=== PATIENT | female | born 1940 | race Caucasian/White ===

== ENCOUNTER → 2016-06-29 14:45 | Outpatient (CLI) | payer MEDICARE ==
[2013-11-18 19:30] VITALS: BMI 28.2
[~2016-06-29 14:45] MED LIST: BAYER CHEWABLE81 MG PO; CEFTIN500 MG PO; FLUTICASONE PRO16 GM NS; METOPROLOL TAR100 M1 PO; MOBIC7.5 MG PO; NEURONTIN 300300 MG PO; PEPCID40 MG PO; PROTONIX20 MG PO
== END | disposition home or self-care (01) ==
LOC: D.MAMMO 09:00
DX: C50.911 Malignant neoplasm of unspecified site of right female breast (principal)

== ENCOUNTER → 2017-07-01 14:13 | Outpatient (CLI) | payer MEDICARE ==
[2013-11-18 19:30] VITALS: BMI 28.2
== END | disposition home or self-care (01) ==
LOC: D.MAMMO 11:00
DX: C50.911 Malignant neoplasm of unspecified site of right female breast (principal); C64.9 Malignant neoplasm of unspecified kidney, except renal pelvis

== ENCOUNTER 2017-10-18 16:59 | Emergency (ER) | payer MEDICARE ==
[2013-11-18 19:30] VITALS: BMI 28.2
[2017-10-18 17:37] LABS: BASOPHILS 0.7 % (0-2); EOSINOPHILS 7.3 % (0-7); HEMATOCRIT 44.6 % (36.0-48.0); IMMATURE GRANULOCYTES 0.3 % (0-5); LYMPHOCYTES 29.5 % (15-50); MCHC 33.6 g/dL (31.0-37.0); MCV 92.1 fL (80.0-100.0); MONOCYTES 8.8 % (2-11); NEUTROPHILS 53.4 % (40-80); PLATELET COUNT 184 10x3/uL (130-400); RBC 4.84 10x6/uL (4.00-5.40); RDW 14.2 % (11.5-14.5); WBC 6.7 10x3/uL (4.8-10.8)
[2017-10-18 17:51] LABS: ALBUMIN 3.6 g/dL (3.4-5.0); ANION GAP 13.2 mmol/L (8-16); BILIRUBIN - TOTAL 0.4 mg/dL (0.2-1.3); CALCIUM 10.8 mg/dL (8.5-10.1); CARBON DIOXIDE 24.7 mmol/L (21.0-32.0); POTASSIUM - SERUM 3.9 mmol/L (3.5-5.1); PROTEIN - SERUM 7.8 g/dL (6.4-8.2)
[2017-10-18 18:04] LABS: INR 1.05 (0.85-1.17); PROTIME 13.3 SECONDS (11.6-15.0)
[2017-10-18 18:39] LABS: CREATINE KINASE 105 UL (21-215); PRO BNP 522 pg/mL (0-450); TROPONIN-I < 0.017 ng/mL (0.000-0.060)
[2017-10-18 19:14] LABS: APPEARANCE SLT CLOUDY (CLEAR); BILIRUBIN NEGATIVE (NEGATIVE); COLOR YELLOW (YELLOW); GLUCOSE NEGATIVE (NEGATIVE); KETONE NEGATIVE (NEGATIVE); NITRITE NEGATIVE (NEGATIVE); PROTEIN NEGATIVE (NEGATIVE); UROBILINOGEN NORMAL (NORMAL)
[2017-10-18 19:16] LABS: BACTERIA MODERATE /hpf (NONE SEEN); CALCIUM OXALATE CRYSTALS 0-5 /hpf (NONE SEEN); EPITHELIAL CELLS 0-5 /hpf (0-5); RED CELLS - URINE 0-5 /hpf (0-5)
== END 2017-10-18 19:46 | disposition home or self-care (01) ==
LOC: D.ER 16:59
PROVIDERS: Emergency Medicine; Nurse Practitioner Family
DX: R00.2 Palpitations (principal); I48.91 Unspecified atrial fibrillation; N39.0 Urinary tract infection, site not specified; Z85.3 Personal history of malignant neoplasm of breast; E11.9 Type 2 diabetes mellitus without complications

== ENCOUNTER → 2018-04-21 08:52 | Outpatient (CLI) | payer MEDICARE ==
[2013-11-18 19:30] VITALS: BMI 28.2
== END | disposition home or self-care (01) ==
LOC: D.CT 08:52
PROVIDERS: Internal Medicine Cardiovascular Disease
DX: I65.23 Occlusion and stenosis of bilateral carotid arteries (principal)

== ENCOUNTER → 2018-07-02 18:16 | Outpatient (CLI) | payer MEDICARE ==
[2013-11-18 19:30] VITALS: BMI 28.2
== END | disposition home or self-care (01) ==
LOC: D.MAMMO 10:45
DX: Z12.31 Encounter for screening mammogram for malignant neoplasm of breast (principal)

== ENCOUNTER 2019-02-04 11:34 | Inpatient (IN) | payer MEDICARE ==
[~2019-02-04] VITALS: Ht 162.6 cm; Wt 80.5 kg
[2019-02-04 12:39] VITALS: BP 127/72
[2019-02-04 12:48] LABS: BASOPHILS 0.1 % (0-2); EOSINOPHILS 0 % (0-7); HEMATOCRIT 44.2 % (36.0-48.0); HEMOGLOBIN 15.3 g/dL (12-16); IMMATURE GRANULOCYTES 0.3 % (0-5); LYMPHOCYTES 14.5 % (15-50); MCH 31.2 pg (26.0-34.0); MCHC 34.6 g/dL (31.0-37.0); MEAN PLATELET VOLUME 10.3 fL (7.4-10.4); NEUTROPHILS 75.1 % (40-80); PLATELET COUNT 193 10x3/uL (130-400); RBC 4.91 10x6/uL (4.00-5.40); RDW 14.3 % (11.5-14.5); WBC 7.4 10x3/uL (4.8-10.8)
[2019-02-04 13:01] VITALS: BP 123/71
[2019-02-04 13:09] LABS: INR 1.1 (0.85-1.17); PROTIME 13.7 SECONDS (11.6-15.0)
[2019-02-04 13:38] LABS: ALBUMIN 3.3 g/dL (3.4-5.0); ALKALINE PHOSPHATASE 75 U/L (46-116); ALT (SGPT) 24 U/L (10-68); BILIRUBIN - TOTAL 0.47 mg/dL (0.2-1.3); CALC OSMOLALITY 279 mosm/kg (275-300); CALCIUM 9.2 mg/dL (8.5-10.1); CARBON DIOXIDE 23.6 mmol/L (21.0-32.0); CHLORIDE - SERUM 103 mmol/L (98-107); GLUCOSE 116 mg/dL (74-106); POTASSIUM - SERUM 3.9 mmol/L (3.5-5.1); PROTEIN - SERUM 7.8 g/dL (6.4-8.2); SODIUM 139 mmol/L (136-145); UREA NITROGEN 14 mg/dL (7-18); eGFR NON AFRICAN AMERICAN 57 mL/min (90-120)
[2019-02-04 13:48] LABS: CKMB 0.7 U/L (0.0-3.6); CREATINE KINASE 67 UL (21-215)
[2019-02-04 13:49] LABS: TROPONIN-I < 0.017 ng/mL (0.000-0.060)
[2019-02-04 14:01] VITALS: BP 120/68
--- NOTE | 2019-02-04 14:41 | NUR ---
PT GIVEN BLANKET AND WATER REQUESTED. LIGHTS DIMMED FOR COMFORT. FRIEND AT THE BEDSIDE. CALL LIGHT IN REACH. PT DENIES ANY FUTHER NEEDS, WILL CONTINUE TO MONITOR.
[2019-02-04 15:00] VITALS: BP 109/70
[2019-02-04 16:20] VITALS: BP 123/83
--- NOTE | 2019-02-04 16:20 | NUR ---
PT LYING IN BED, RESPIRATIONS EVEN AND UNLABORED. NO SIGNS OF DISTRESS. FAMILY PRESENT AT BEDSIDE. CALL LIGHT IN REACH.
--- NOTE | 2019-02-04 16:34 | NUR ---
FAX RECEIVED FROM [facility] AT APPROX. 1600 WITH RECORD OF PT'S ECHO THAT WAS RECENTLY DONE AT OUTSIDE FACILITY. GIVEN TO TREATING PROVIDER IN THE ED. THIS NURSE INSTRUCTED NOT TO DISCHARGE PT PREVIOUSLY STATED.
--- NOTE | 2019-02-04 18:41 | NUR ---
ADMITTED FROM ER AT THIS TIME. SHE WAS ABLE TO AMBULATE WITH MINIMAL ASSIST FROM STRETCHER TO THE BED. SHE OFFERS NO C/O DIZZINESS. O2 AT 2L/M PER N/C RESP EVEN WITHOUT LABOR. SHE IS CURRENTLY EATING HER SUPPER. FAMILY AT BEDSIDE. SALINE LOCK INTACT IN LEFT HAND. ARC AIR OPERATOR AWARE OF NEED FOR TELEMETRY. CL IN REACH. BED IN LOWEST POSITION AND LOCKED
[2019-02-04 20:00] VITALS: BP 116/76
--- NOTE | 2019-02-04 20:02 | NUR ---
PT RESTING IN BED ALERT AND ORIENTED X4 WITH 2L OF O2-96%. PT HAS SCD'S ON AT THIS TIME. PT RUNNING 98 SINUS RYTHEM AT THIS TIME. PT CONVERTED OUT OF A-FIBB AT 1957. PT GRANDDAUGHTER AT BEDSIDE. PT DENIES ANY PAIN OR NEEDS AT THIS TIME. BED LOW CALL LIGHT WITHIN REACH. WILL CONTINUE TO MONITOR.
[2019-02-05] VITALS: BP 102/63
--- NOTE | 2019-02-05 00:14 | NUR ---
PT RESTING COMFORTABLY IN BED WITH EYES CLOSED. RR EVEN AND UNLABORED. VITALS STABLE. PT RUNNING 68 SINUS RYTHEM ON TELEMETRY. BED LOW CALL LIGHT WITHIN REACH. WILL CONTINUE TO MONITOR.
--- NOTE | 2019-02-05 00:26 | NUR ---
ALBINA ROSE ASSISTED PT TO BATHROOM. WILL CONTINUE TO MONITOR.
[2019-02-05 03:00] VITALS: BP 116/76; Ht 162.6 cm; Wt 80.5 kg
[2019-02-05 04:30] VITALS: BP 109/68
[2019-02-05 05:41] LABS: BASOPHILS 0.5 % (0-2); EOSINOPHILS 0.5 % (0-7); HEMATOCRIT 40.6 % (36.0-48.0); HEMOGLOBIN 13.8 g/dL (12-16); IMMATURE GRANULOCYTES 0.2 % (0-5); LYMPHOCYTES 29.1 % (15-50); MCH 30.5 pg (26.0-34.0); MCV 89.6 fL (80.0-100.0); MEAN PLATELET VOLUME 10.9 fL (7.4-10.4); MONOCYTES 13.3 % (2-11); NEUTROPHILS 56.4 % (40-80); PLATELET COUNT 183 10x3/uL (130-400); RBC 4.53 10x6/uL (4.00-5.40); RDW 14.2 % (11.5-14.5)
[2019-02-05 05:45] LABS: ANION GAP 12.2 mmol/L (8-16); CALCIUM 8.9 mg/dL (8.5-10.1); CARBON DIOXIDE 26.4 mmol/L (21.0-32.0); POTASSIUM - SERUM 3.6 mmol/L (3.5-5.1)
[2019-02-05 05:47] LABS: WBC 4.2 10x3/uL (4.8-10.8)
--- NOTE | 2019-02-05 06:15 | NUR ---
PT RUNNING 67 AFIBB ON TELEMETRY. WILL CONTINUE TO MONITOR.
--- NOTE | 2019-02-05 07:05 | NUR ---
REPORT RECEIVED. SHE IS ALERT ABLE TO VOICE NEEDS. STATES I FEEL FINE. O2 IS ON AT 2 L/M PER N/C RESP EVEN WITHOUT LABOR SALINE LOCK INTACT. DENIES ANY CURRENT DIZZINESS, PALPITATIONS, OR SOB. CAREPLAN REVIEW DONE WITH SAFETY PRECAUTIONS IN PLACE. BED IN LOWEST POSITION AND LOCKED CL IN REACH
[2019-02-05 08:00] VITALS: BP 100/68
--- NOTE | 2019-02-05 09:20 | NUR ---
SHE CONVERTED TO SR WITH [facility] PAC AT THIS TIME. SHE ALSO WAS IN A-FLUTTER AT 0752 THIS AM. SHE HAS BEEN BACK AND FORTH BETWEEN A-FIB AND SR THIS AM.
--- NOTE | 2019-02-05 09:35 | NUR ---
NEW ORDER FROM DR EVANS AFTER CALLING AND GIVING HIM UPDATE DUE TO SHE HAS BEEN IN A-FIB SINCE 617 THIS AM. IT IS CONTROLLED IN 80'S BUT SHE IS SYMPTOMATIC WHEN SHE GETS UP TO GO TO THE BATHROOM SHE GETS SHORT OF BREATH. SHE IS ALSO CLAMMY ON AND OFF AND JUST FEELS ODD. CURRENT VITALS AND CONDITION WERE REPORTED TO HIM. NEW ORDER GIVEN AND HER AND FAMILY ARE AWARE
--- NOTE | 2019-02-05 09:43 | NUR ---
BLOOD PRESSURE 108/68 HR IS 68. CARDIZEM 10MG GIVEN IVP AT THIS TIME.
--- NOTE | 2019-02-05 09:45 | NUR ---
HR IS CURRENTLY 63 SR, SHE STATES SHE FEELS BETTER AND CAN TELL. BLOOD PRESSURE IS 100/60. O2 SAT IS 95% ON 2 LITERS O2 . UPDATE ON CURRENT CONDITION CALLED TO DR EVANS WHO ORDERED CARDIZEM 60MG PO BID WITH FIRST DOSE TODAY AT NOON.
[2019-02-05 12:45] VITALS: BP 107/64
--- NOTE | 2019-02-05 14:00 | NUR ---
SHE HAS BEEN IN SR TO SB SINCE 945 THIS AM. SHE IS ON ROOM AIR WITH O2 SAT 89-90%. SHE GOT UP AND AMBULATED AND O2 SAT STAYED BETWEEIN 93-95%. SHE FEELS BETTER. NO SHORTNESS OF BREATH.
[2019-02-05 16:58] VITALS: BP 108/69
[2019-02-05] MEDS ORDERED: XARELTO15 MG PO (17:09)
[2019-02-05] MEDS ORDERED: CARDIZEM60 MG PO (17:10)
--- NOTE | 2019-02-05 17:52 | NUR ---
PER PATIENT REQUEST, [facility]S OF [facility]ED[facility] CALLED TO LEONARD AT [facility]. COPY OF SCRIPTS PLACED IN CHART.
--- NOTE | 2019-02-05 18:30 | NUR ---
DISCHARGE INSTRUCIONS EXPLAINED IN DETAIL. SALINE LOCK REMOVED WITH BLEEDING CONTROLLED. TELEMETRY RETURNED TO CREATIVE TECHNOLOGIST. SHE CONTINUES TO HAVE NO C/O SHE WAS ABLE TO DRESS SELF WITH MINIMAL ASSIST AND NO SHORTNESS OF BREATH.
--- NOTE | 2019-02-06 08:03 | MORECARE ---
CASE MANAGEMENT DISCHARGE SUMMARY PATIENT: KIT AKHTAR SWETA UNIT: [id number] ADM DATE: 02/04/19 AGE: 78 : 40 SEX: F ROOM/BED: D. AUTHOR: ELLIS CASTILLO PHYSICIAN: REFERRING PHYSICIAN: OLAYINKA EVANS M.D. DATE OF SERVICE: 02/06/19 Discharge Plan Patient Name: KIT AKHTAR Facility: [facility]:[place] : 1940 Planned Disposition: Home Anticipated Discharge Date: 02/05/19 Discharge Date: 02/05/2019 Expected LOS: 1 Initial Reviewer: [email or web address] Initial Review Date: 02/06/2019 Generated: 02/06/19 9:03 am Patient Name: KIT AKHTAR Page [phone] at 0803 All edits/amendments must be made on the electronic document DICTATION DATE: 02/06/19 08 MANAGER OF CORPORATE COMMUNICATIONS: DM 02/06/19 08 RPT#: [id number] DC DATE:02/05/19 STATUS: DIS IN [facility] [address] [place] [address] END OF REPORT
== END 2019-02-05 18:30 | disposition home or self-care (01) | DRG 310 ==
LOC: D.ER 11:34 → D.M2 17:20
PROVIDERS: Family Medicine; ADMIT Internal Medicine Cardiovascular Disease; ATTEND Internal Medicine Cardiovascular Disease
DX: I48.0 Paroxysmal atrial fibrillation (principal); I10 Essential (primary) hypertension; E11.9 Type 2 diabetes mellitus without complications

== ENCOUNTER → 2019-03-06 08:09 | Outpatient (CLI) | payer MEDICARE ==
[2019-02-05 03:00] VITALS: BMI 30.4
[~2019-03-06 08:09] MED LIST changes: +CARDIZEM60 MG PO; +XARELTO15 MG PO
== END | disposition home or self-care (01) ==
LOC: D.RT 08:09
PROVIDERS: ATTEND Internal Medicine Pulmonary Disease
DX: R06.00 Dyspnea, unspecified (principal)

== ENCOUNTER → 2019-04-13 13:39 | Outpatient (CLI) | payer MEDICARE ==
[2019-02-05 03:00] VITALS: BMI 30.4
== END | disposition home or self-care (01) ==
LOC: D.RAD 13:39
PROVIDERS: ATTEND Internal Medicine Pulmonary Disease
DX: J90 Pleural effusion, not elsewhere classified (principal)

== ENCOUNTER → 2019-04-27 12:17 | Outpatient (CLI) | payer MEDICARE ==
[2019-02-05 03:00] VITALS: BMI 30.4
== END | disposition home or self-care (01) ==
LOC: D.CT 12:17
PROVIDERS: ATTEND Internal Medicine Pulmonary Disease
DX: R93.89 Abnormal findings on diagnostic imaging of other specified body structures (principal)

== ENCOUNTER → 2019-05-21 08:33 | Outpatient (CLI) | payer MEDICARE ==
[2019-02-05 03:00] VITALS: BMI 30.4
[2019-05-21 09:23] LABS: CREATININE - SERUM 0.9 mg/dL (0.6-1.3)
== END | disposition home or self-care (01) ==
LOC: D.CT 08:33
PROVIDERS: ATTEND Internal Medicine Cardiovascular Disease
DX: I71.2 Thoracic aortic aneurysm, without rupture (principal); I71.4 Abdominal aortic aneurysm, without rupture

== ENCOUNTER → 2019-11-26 08:34 | Outpatient (CLI) | payer MEDICARE ==
[2019-02-05 03:00] VITALS: BMI 30.4
== END | disposition home or self-care (01) ==
LOC: D.CT 08:34
PROVIDERS: ATTEND Internal Medicine Cardiovascular Disease
DX: I71.2 Thoracic aortic aneurysm, without rupture (principal)

== ENCOUNTER 2020-01-12 11:49 | Day surgery (SDC) | payer MEDICARE ==
[~2020-01-12] VITALS: Ht 162.6 cm; Wt 85.5 kg
--- NOTE | ~2020-01-12 | HEMODYNAMI ---
PATIENT:KIT AKHTAR MEDICAL RECORD: [id number] : 40 LOCATION:D.CAT ADMISSION DATE: 01/12/20 Generatedon:01/12/202014:47 Patient name: KIT AKHTAR Patient #: [id number] SSN: : 1940 Date of study: 01/12/2020 Page: Of Hemodynamic Procedure Report Patient Data Patient Demographics Procedure consent was obtained First Name: KIT Gender: Female Last Name: GIOVANA : 1940 [facility] Initial: SWETA Age: 79 year(s) Patient #: [id number] Race: Unknown Additional ID: [id number] Contact details Address: [address] [place] [address] State: [place] City: [facility] Zip code: [address] Past Medical History Allergies Allergen Reaction Date Comments Reported Other 01/12/2020 buprophion, allergy ciprofloxacin,citalopram, dayquil,dextromethorphan, levofloxacin, phenylephrine, pseudoephedrine. Admission Admission Data Admission Date: 01/12/2020 Admission Time: 11:49 Admit Source: Other Lab Results Lab Result Date: 01/12/2020 Lab Result Time: 13:23 CBC Name Units Result Min Max Hematocrit % 43.1 --(*---)-- 42 54 Hemoglobin g/dl 14.1 --(*---)-- 13.5 17.5 Procedure Procedure Types Cath Procedure Diagnostic Procedure PPM/ICD PPM Dual Implant Sedation Charges Moderate Sedation up to 30 minutes Procedure Description Procedure Date Procedure Date: 01/12/2020 Procedure Start Time: 14:20 Procedure Staff Name Function Micha Silva MD Performing Physician Remy Galvez MD Assisting physician Jonathan Crawford RT Monitor Toshia Feng RT Scrub Felix Dey RN Nurse Indication Atrial fibrillation Procedure Data Cath Procedure Fluoroscopy Diagnostic fluoroscopy Total fluoroscopy Time: 1.1 time: 1.1 min min Diagnostic fluoroscopy Total fluoroscopy dose: dose: 21.95 mGy 21.95 mGy Estimated blood loss: 5 ml Procedure Complications No complications Procedure Medications Medication Administration Route Dosage Oxygen etCO2 Nasal cannula 2 l/min Lidocaine 1% added to field 20 Ancef (1Gm/50ml NS) I.V.P.B 1 g Ancef Irrigation Topical 1 g (1gm/500ml NS) 0.9% NaCl I.V. 50 ml/hr Zofran I.V. 4 mg Versed I.V. 1 mg Fentanyl I.V. 50 mcg Versed I.V. 1 mg Fentanyl I.V. 50 mcg Hemodynamics Rest Heart Rate: 62 (bpm) Snapshots Pre Cath Intra NCS Post Cath Vital Signs Time Heart Resp SPO2 etCO2 NIBP (mmHg) Rhythm Pain Sedation Rate (ipm) (%) (mmHg) Status Level (bpm) 13:51:56 70 27 94 0 168/95(110) NSR (Missing) 10(A) 14:03:04 67 11 93 152/86(121) NSR (Missing) 10(A) 14:07:20 70 22 94 143/78(105) NSR (Missing) 10(A) 14:11:34 69 18 93 153/91(110) NSR (Missing) 10(A) 14:15:56 64 16 92 149/78(105) NSR (Missing) 10(A) 14:20:16 62 15 93 148/80(114) NSR (Missing) 10(A) 14:24:34 101 6 92 152/83(120) NSR (Missing) 10(A) 14:28:52 64 20 93 155/91(122) NSR (Missing) 10(A) 14:33:11 68 21 93 149/87(109) NSR (Missing) 10(A) 14:37:29 64 12 93 165/86(132) NSR (Missing) 10(A) 14:42:27 63 16 94 Measuring NSR (Missing) 10(A) 14:42:48 68 16 93 158/88(138) NSR (Missing) 10(A) Medications Time Medication Route Dose Verified Delivered Reason Notes Effectiv eness by by 14:05:24 Oxygen etCO2 2 Micha [place] used for Nasal l/min St Carlo Dey RN procedure cannula 14:06:27 Lidocaine added 20ml Micha Alberto for local 1% to vial St Carlo Galvez MD anesthetic field X2 14:06:42 Ancef I.V.P.B 1 g Micha Buffie used for (1Gm/50ml Ricardo Dey inclusion paraeducator NS) 14:06:49 Ancef Topical 1 g Micha Buffie used for Irrigation Ricardo Dey inclusion paraeducator (1gm/500ml MD NS) 14:07:03 0.9% NaCl I.V. 50 Micha Buffie used for ml/hr Ricardo Dey inclusion paraeducator 14:10:40 Zofran I.V. 4 mg Micha Buffie Per Ricardo Dey RN physician 14:15:21 Versed I.V. 1 mg Micha Buffie for Ricardo Dey RN sedation 14:15:27 Fentanyl I.V. 50 Micha Buffie for mcg Ricardo Dey RN sedation 14:21:53 Versed I.V. 1 mg Micha Buffie for Ricardo Dey RN sedation 14:21:57 Fentanyl I.V. 50 Micha Buffie for mcg Ricardo Dey RN sedation MD Procedure Log Time Note 12:25:10 Informed consent obtained and on chart 12:26:08 Indication : Atrial fibrillation 12:26:16 Time tracking: Regular hours (M-F 7:00 - 5:00) 12:26:28 Procedure Status PPM/ Gen Change/ Lead Revision/ Temp. 13:24:09 Jonathan VALENTIN(R) sent for patient. Start room use. 13:24:10 Time tracking: Regular hours (M-F 7:00 - 5:00) 13:24:13 Plan of Care:Hemodynamics will remain stable., Cardiac rhythm will remain stable., Comfort level will be maintained., Respiratory function will remain adequate., Patient/ family verbilizes understanding of procedure., Procedure tolerated without complication., Recovers from procedure without complications.. 13:24:24 H&P Date Dictated: 01/04/2020 Within 30 days and on chart., H&P Addendum completed by physician on day of procedure. (MUST COMPLETE FOR ALL OUTPATIENTS). 13:40:16 Patient received from Pre/Post Procedure Room to CCL 3 Alert and oriented. Tansferred to table in Supine position. 13:40:17 Warm blankets applied, and mando hugger turned on for patient comfort. 13:40:18 Correct patient and procedure confirmed by team. 13:40:18 ECG and BP/O2 sat monitors applied to patient. 13:40:19 Pre-procedure instructions explained to patient. 13:40:20 Pre-op teaching completed and patient verbalized understanding. 13:40:21 Family in waiting room. 13:40:22 Patient NPO since Midnight. 13:50:17 Patient allergic to Other allergybuprophion, ciprofloxacin,citalopram, dayquil,dextromethorphan, levofloxacin, phenylephrine, pseudoephedrine. 13:50:45 Vital chart was started 13:50:47 Baseline sample Acquired. 13:51:00 Rhythm: atrial fibrillation 13:51:02 Full Disclosure recording started 13:51:06 Is the patient allergic to Iodine/contrast media? No. 13:51:09 Patient diabetic? No. 13:52:11 Previous problem with sedation/anesthesia? Yes nausea 13:52:17 Snore? Yes 13:52:18 Sleep apnea? Yes 13:52:19 Deviated septum? No 13:52:21 Opens mouth fully? Yes 13:52:22 Sticks out tongue? Yes 13:52:24 Airway obstruction? No ? 13:52:27 Dentures? No ? 13:53:56 Patient pain scale 0/10 ?. 13:54:00 IV patent on arrival in left forearm with 0.9% NaCl at [facility]. 13:57:57 Lab Result : Hemoglobin 14.1 g/dl 13:57:57 Lab Result : Hematocrit 43.1 % 13:58:14 Admit Source: Other 13:58:21 Lab results completed and on chart. 13:58:26 Left chest area was prepped with chlora-prep and draped in sterile fashion 13:58:27 Alarms reviewed by R. N. 13:58:28 Sharps counted by scrub and verified by R.N. 13:58:33 Use device set ITALIA PPM 13:58:35 2-0 Ticron Multipack ([id number]) opened to sterile field. 13:58:35 3-0 Vicryl Single Pack [id number] opened to sterile field. 13:58:35 5-0 Monocryl PS2 [id number] opened to sterile field. 13:58:36 Cautery Tip Confidential Secretary opened to sterile field. 13:58:36 Cautery Pushbutton Pencil opened to sterile field. 13:58:37 Mepilex Dressing ([id number]) opened to sterile field. 13:59:[address] Generator [id number] opened to sterile field. 13:59:18 Medtronic 4074-52 PPM Lead opened to sterile field. 13:59:18 Medtronic 4574-45 PPM Lead opened to sterile field. 14:05:24 Oxygen 2 l/min etCO2 Nasal cannula was administered by Felix Dey RN; used for procedure; Verbal order read back and verified. 14:06:27 Lidocaine 1% 20ml vial X2 added to field was administered by Remy Galvez MD; for local anesthetic; Verbal order read back and verified. 14:06:42 Ancef (1Gm/50ml NS) 1 g I.V.P.B was administered by Felix Dey RN; used for procedure; Verbal order read back and verified. 14:06:49 Ancef Irrigation (1gm/500ml NS) 1 g Topical was administered by Felix Dey RN; used for procedure; Verbal order read back and verified. 14:07:03 0.9% NaCl 50 ml/hr I.V. was administered by Felix Dey RN; used for procedure; Verbal order read back and verified. 14:08:52 Medtronic applications sales representative Kj Muñiz present for procedure. 14:09:01 Pre sharps counted by scrub and verified by RN: Sutures: 7; Sponges: 5; Stick needles: 2; Skin needles: 2; Blade: 1; Cautery: 1 14:09:04 Grounding pad site Left thigh. 14:09:07 Grounding pad site free from injury. 14:10:40 Zofran 4 mg I.V. was administered by Felix Dey RN; Per physician; Verbal order read back and verified. 14:12:36 Physician arrived 14:12:37 --------ALL STOP TIME OUT------ 14:12:38 Final Timeout: patient, procedure, and site verified with staff and physician. All members of the team are in agreement. 14:12:49 Left chest site verified by team. 14:13:16 Fire Safety Assessment: A--An alcohol-based skin anteseptic being used preoperatively., C--Open oxygen or nitrous oxide is being used., D--An ESU, laser, or fiber-optic light is being used. 14:13:20 Physical assessment completed. ASA score P 2 - A patient with mild systemic disease as per Micha Silva MD. 14:13:33 1) 90+ Normal kidney functon but urine findings or structural abnormalities or genetic trait point to kidney disease. 14:13:40 Sedation plan: IV Moderate Sedation Medication:Versed, Fentanyl 14:15:21 Versed 1 mg I.V. was administered by Felix Dey RN; for sedation; Verbal order read back and verified. 14:15:27 Fentanyl 50 mcg I.V. was administered by Felix Dey RN; for sedation; Verbal order read back and verified. 14:20:17 Lidocaine 2% was administered to left subclavicular area by Remy Galvez MD . 14:21:53 Versed 1 mg I.V. was administered by Felix Dey RN; for sedation; Verbal order read back and verified. 14:21:57 Fentanyl 50 mcg I.V. was administered by Felix Dey RN; for sedation; Verbal order read back and verified. 14:22:34 Incision made to left subclavicular area. 14:22:36 Generator pocket made/opened. 14:26:45 Left subclavian vein accessed with 7Fr Peel Away Sheath. 14:27:00 Left subclavian vein accessed with 7Fr Peel Away Sheath. 14:27:39 Ventricular lead inserted and advanced. 14:27:43 Atrial lead inserted and advanced. 14:30:08 Ventricular lead positioned. 14:31:12 Atrial lead positioned. 14:32:21 Ventricular lead tested. 14:32:23 Atrial lead tested. 14:32:26 Peel-a-way sheath was split and removed. 14:32:28 Peel-a-way sheath was split and removed. 14:34:02 Atrial lead attachment was completed with 2-0 ticron. 14:34:05 Ventricular lead attachment was completed with 2-0 ticron. 14:34:09 PPM Dual was attached to lead(s) and inserted into pocket. 14:34:12 Device pocket was irrigated with Ancef. 14:34:20 Generator was sutured in place with 2-0 ticron. 14:35:40 Subcutaneous closure was completed with 3-0 vicryl. 14:36:48 Parameters-- Generator: Mode: DDDR. Lower Rate: 60bpm. Upper Rate: 130bpm. 14:37:20 Parameters--Atrial P/R Wave: 2.1mV. Current: N/AmA; Threshold: 0.25V; Impedence: 456OHMS. 14:37:46 Parameters--Ventricular P/R Wave: 0.4mV. Current: N/AmA; Threshold: 0.375V; Impedence: 1140OHMS. 14:37:53 Skin closure was completed with 5-0 monocryl. 14:42:34 Lt Chest incision was dressed with Mepilex dressing. 14:42:37 Procedure ended.(Physican Out) 14:42:48 Fluoroscopy time 01.10 minutes. 14:42:56 Fluoroscopy dose: 21.95 mGy 14:42:56 Flurop Dose total: 21.95 14:43:04 Dose Area Product 275.38 mGy/cm. 14:43:21 Sharps counted by scrub and verified by R.N. 14:43:29 Post sharps counted by scrub and verified by RN: Sutures: 7; Sponges: 5; Stick needles: 2; Skin needles: 2; Blade: 1; Cautery: 1 14:43:32 Insertion/operative site no bleeding no hematoma. 14:43:37 Post-op/insertion site Left Subclavian vein dressed using a Mepilex dressing. 14:43:45 Post left subclavian vein:stable, soft, clean and dry 14:43:49 Post-procedure physical assessment completed. ASA score P 2 - A patient with mild systemic disease as per Micha Silva MD. 14:43:54 Post procedure rhythm: sinus rhythm , paced 14:44:00 Estimated blood loss: 5 ml 14:44:03 Post procedure instruction explained to patient.Patient verbalizes understanding. 14:44:08 Patient needs reinforcement of post procedure teaching. 14:44:39 Procedure type changed to Cath procedure, Diagnostic procedure, PPM/ICD, PPM Dual Implant, Sedation Charges, Moderate Sedation up to 30 minutes 14:44:53 Procedure and supply charges have been captured, reviewed, submitted and are correct. 14:44:56 Procedure Complication : No complications 14:44:59 Vital chart was stopped 14:45:08 Operative report dictated upon procedure completion. 14:45:09 Report given to Pre/Post Procedure Room. 14:45:12 Patient transfered to Pre/Post Procedure Room with Stretcher. 14:45:19 End room use (Document Last) 14:45:52 End room use (Document Last) Device Usage Item Name Manufacture Quantity Catalog Hospital Part Current [facility] l Lot# / Serial# Number Charge Number Stock Stock Code 2-0 Ticron Ethicon 4 [id number] 02899 [id number] 5 Multipack ([id number]) 3-0 Vicryl Ethicon 1 [id number] 173057 [id number] 5 Single Pack [id number] 5-0 Monocryl Ethicon 1 [id number] 928992 586266 376088 5 PS2 Y495G Cautery Tip Microtek 1 [id number] 754593 667218 109907 5 Confidential Secretary [employer] Cautery Microtek 1 [id number] 14572 [id number] 5 Pushbutton [employer] Pencil Mepilex Cardinal 1 [id number] 077451 301771 447668 5 Dressing Health ([id number]) Medtronic Medtronic 1 [id number] 908106 5562640 746908 5 SN: [id number] CARSON XT DR 2021-04-30 Generator [id number] Medtronic Medtronic 1 4074-52 357759 835903 541008 5 [id number] 4074-52 PPM EXP:2020-02-13 Lead Medtronic Medtronic 1 4574-45 403271 871827 240443 5 [id number] 4574-45 PPM 2020-04-23 Lead Signature Audit [place] Stage Time Signature Unsigned Intra-Procedure 01/12/2020 Felix Dey 2:45:52 PM RN; Jonathan Crawford RT(R); Micha Silva MD [facility] [address] [place] [address]
--- NOTE | ~2020-01-12 | OP ---
PATIENT NAME: KIT AKHTAR MEDICAL RECORD: [id number] :40 LOCATION:D.CAT ADMISSION DATE: SURGEON: REMY ECHAVARRIA MD DATE OF OPERATION: 01/12/2020 PREOPERATIVE DIAGNOSES: 1. Sick sinus syndrome. 2. Atrial fibrillation. POSTOPERATIVE DIAGNOSES: 1. Sick sinus syndrome. 2. Atrial fibrillation. PROCEDURE: 1. Left subclavian vein dual lead pacemaker placement. 2. Fluoroscopic interpretation. SURGEON: Remy Echavarria MD CO-SURGEON: Micha Kingston MD REPORT OF PROCEDURE: The patient's left chest was prepped and draped in sterile fashion. A 25 mL of 1% lidocaine with epinephrine was infused into the surrounding tissues. A skin incision was made on the left superior lateral chest and a subcutaneous pouch was made over the pectoral fascia. The needles were used to cannulate the left subclavian vein and guidewires were advanced times 2. Fluoro was used to note that the wires were in good position in the venous system. Dilator trocar devices were placed over the wires and the wires and dilators were removed. The leads were advanced through the trocars until they rested in the superior vena cava. At this point, Dr. Kingston positioned the leads appropriately in the atrium and ventricle. Once the leads were noted to be functioning appropriately, then they were sutured into place with 2-0 TiCron. The leads were affixed to the pacemaker, which was placed into the subcutaneous pouch and sutured to the pectoral fascia with a single interrupted 2-0 TiCron. We irrigated out the wound bed with antibiotic solution. The subcutaneous tissues were reapproximated with interrupted 3-0 Vicryl and the skin was closed with running subcutaneous 5-0 Monocryl. COMPLICATIONS: None. CONDITION: Stable. ANESTHESIA: Local MAC. BLOOD LOSS: Minimal. TRANSINT:[id number] Voice Confirmation ID: [id number] DOCUMENT ID: [id number] OPERATIVE REPORT [id number] KIT AKHTAR CHRISTIAN MD CC: [id number] DICTATION DATE: 01/12/20 1448 CLAIM SERVICE REPRESENTATIVE: 01/12/20 [address] [facility] 01/12/20 [place] [address]
[2020-01-12] MEDS ORDERED: CALCIUM 600 +1 EAC3 PO (12:22)
[2020-01-12] MEDS ORDERED: CO Q-10100 MG PO (12:23)
[2020-01-12] MEDS ORDERED: FOLIC ACID0.8 MG PO (12:23)
[2020-01-12 12:43] VITALS: BP 128/87; Ht 162.6 cm; Wt 85.5 kg
[2020-01-12 13:42] LABS: HEMATOCRIT 43.1 % (36.0-48.0); HEMOGLOBIN 14.1 g/dL (12-16); MCH 31.5 pg (26.0-34.0); MCHC 32.7 g/dL (31.0-37.0); MCV 96.4 fL (80.0-100.0); MEAN PLATELET VOLUME 10.6 fL (7.4-10.4); RBC 4.47 10x6/uL (4.00-5.40); RDW 14.3 % (11.5-14.5); WBC 6.6 10x3/uL (4.8-10.8)
[2020-01-12 13:49] LABS: APTT 42.2 SECONDS (22.8-39.4); INR 1.11 (0.85-1.17); PROTIME 14.2 SECONDS (11.6-15.0)
[2020-01-12 13:58] LABS: ANION GAP 13.1 mmol/L (8-16); CALCIUM 9.8 mg/dL (8.5-10.1); CARBON DIOXIDE 25.9 mmol/L (21.0-32.0); CREATININE - SERUM 0.9 mg/dL (0.6-1.3)
--- NOTE | 2020-01-12 15:00 | NUR ---
PT RECEIVED VIA STRETCHER FROM STEEL PAN FORM PLACING SUPERVISOR POST PACEMAKER. PT AWAKE AND ALERT, DENIES PAIN OR DISCOMFORT AT THIS TIME. L UPPER CHEST W MEDIPLEX DRESSING IN PLACE, NO BLEEDING NOTED. IV PATENT INFUSING VIA ORDERS. PT PLACED ON CARDIAC MONITORS, HR PACED AT 66, BP 159/87, RR 15, SAT 94 ON ROOM AIR. L ARM STATIONARY IN SLING. CALL LIGHT IN REACH, GRANDDAUGHTER AT BS. SIPS OF SPRITE GIVEN
--- NOTE | 2020-01-12 15:17 | NUR ---
JOSEFINA AT BS.
--- NOTE | 2020-01-12 15:30 | NUR ---
PT RESTING W/O COMPLAINTS. DRESSING REMAINS CDI NO S/S BLEEDING NOTED. VSS. CALL LIGHT IN REACH
--- NOTE | 2020-01-12 15:54 | NUR ---
DISCHARGE INSTRUCTIONS REVIEWED W PT AND GRANDDAUGHTER, BOTH VERBALIZED UNDERSTANDING.
--- NOTE | 2020-01-12 16:05 | NUR ---
IV REMOVED W CATH INTACT, MONITORS REMOVED. MEDIPLEX DRESSING REMAINS CDI NO S/S HEMATOAM OR BLEEDING NOTED. PT UP TO DRESS FOR DISCHARGE W SLING IN PLACE.
--- NOTE | 2020-01-12 16:20 | NUR ---
PT DISCHARGED VIA WC TO GRANDDAUGHTER WAITING IN PRIVATE VEHICLE. GRANDDAUGHTER HAD ALL PT BELONGINGS AND DISCHARGE PAPERWORK,
--- NOTE | 2020-01-14 14:25 | OP ---
PATIENT NAME: JOSE DE JESUS MCALLISTER MEDICAL RECORD: [id number] :40 LOCATION:D.CAT ADMISSION DATE: SURGEON: YANET HOLT MD DATE OF OPERATION: 01/12/2020 PROCEDURE: Lead portion of permanent pacemaker. SURGEON: Remy Galvez MD DIAGNOSIS: Sick sinus syndrome with pauses. DESCRIPTION OF PROCEDURE: After left subclavian was cannulated via modified Seldinger technique via Dr. Galvez, first under fluoroscopic guidance, the RV lead was placed in the RV apex without difficulty. After adequate thresholds and R waves were obtained, again under fluoroscopic guidance, I placed the right atrial lead in the right atrial appendage without difficulty. After adequate P waves and thresholds are obtained, the leads were then attached to appropriate poles of the generator and pocket was closed via Dr. Galvez. IMPRESSION: Successful lead portion of permanent pacemaker placement of Jose De Jesus Mcallister. ESTIMATED BLOOD LOSS: Minimal. DISPOSITION: To the floor, stable. TRANSINT:[id number] Voice Confirmation ID: [id number] DOCUMENT ID: [id number] YANET HOLT MD at 1425 CC: [id number] DICTATION DATE: 01/12/20 1503 ENGINEERING ADMINISTRATOR: 01/12/20 [address] [facility] 01/12/20 [place] [id number] [facility] [place] [address]
== END 2020-01-12 16:20 | disposition home or self-care (01) ==
LOC: D.CATH 11:49 → EDSTATUS 13:30 → D.CATH 16:20
PROVIDERS: ATTEND Internal Medicine Interventional Cardiology
DX: I49.5 Sick sinus syndrome (principal); I48.91 Unspecified atrial fibrillation; E78.5 Hyperlipidemia, unspecified; I10 Essential (primary) hypertension

== ENCOUNTER 2020-09-07 09:45 | Outpatient (CLI) | payer MEDICARE ==
[2020-01-12 12:43] VITALS: BMI 32.3
[~2020-09-07 09:45] MED LIST changes: +CALCIUM 600 +1 EAC3 PO; +CO Q-10100 MG PO; +FOLIC ACID0.8 MG PO
== END 2020-09-07 23:59 | disposition home or self-care (01) ==
LOC: D.MAMMO 09:45
PROVIDERS: ATTEND Family Medicine
DX: Z12.31 Encounter for screening mammogram for malignant neoplasm of breast (principal)

== ENCOUNTER 2020-09-15 11:00 | Outpatient (CLI) | payer MEDICARE ==
[2020-01-12 12:43] VITALS: BMI 32.3
== END 2020-09-15 23:59 | disposition home or self-care (01) ==
LOC: D.MAMMO 11:00
PROVIDERS: ATTEND Family Medicine
DX: R92.8 Other abnormal and inconclusive findings on diagnostic imaging of breast (principal)

== ENCOUNTER → 2020-09-15 11:02 | Outpatient (CLI) | payer MEDICARE ==
[2020-01-12 12:43] VITALS: BMI 32.3
== END | disposition home or self-care (01) ==
LOC: D.CT 11:02
PROVIDERS: ATTEND Internal Medicine Cardiovascular Disease
DX: I71.4 Abdominal aortic aneurysm, without rupture (principal); I71.2 Thoracic aortic aneurysm, without rupture

== ENCOUNTER 2020-11-04 08:03 | Inpatient (IN) | payer MEDICARE ==
[2020-11-03 14:32] LABS: BASOPHILS 1.2 % (0-2); EOSINOPHILS 5.2 % (0-7); HEMATOCRIT 46.1 % (36.0-48.0); HEMOGLOBIN 14.9 g/dL (12-16); LYMPHOCYTES 27.3 % (15-50); MCH 30.8 pg (26.0-34.0); MCHC 32.3 g/dL (31.0-37.0); MCV 95.6 fL (80.0-100.0); MONOCYTES 7.7 % (2-11); NEUTROPHILS 58.6 % (40-80); PLATELET COUNT 218 10x3/uL (130-400); RBC 4.82 10x6/uL (4.00-5.40); RDW 14.9 % (11.5-14.5); WBC 6.3 10x3/uL (4.8-10.8)
[2020-11-03 14:45] LABS: ANION GAP 14.4 mmol/L (8-16); BILIRUBIN - TOTAL 0.39 mg/dL (0.2-1.3); CALCIUM 10.5 mg/dL (8.5-10.1); CARBON DIOXIDE 26.7 mmol/L (21.0-32.0); CREATININE - SERUM 1.1 mg/dL (0.6-1.3); POTASSIUM - SERUM 4.1 mmol/L (3.5-5.1); PROTEIN - SERUM 7.8 g/dL (6.4-8.2)
[2020-11-03 14:47] LABS: BILIRUBIN NEGATIVE (NEGATIVE); KETONE NEGATIVE (NEGATIVE); NITRITE NEGATIVE (NEGATIVE); UROBILINOGEN NORMAL mg/dL (< 2)
[2020-11-03 14:48] LABS: SQUAMOUS EPITHELIAL 0-5 HPF (0-4)
[2020-11-03 14:49] LABS: APTT 31.2 SECONDS (22.8-39.4); BACTERIA FEW HPF (NONE SEEN); INR 1.28 (0.85-1.17); PROTIME 14.8 SECONDS (11.6-15.0)
[~2020-11-04] VITALS: Ht 160 cm; Wt 86.1 kg
[~2020-11-04 08:03] MED LIST changes: +ELIQUIS2.5 MG PO; +MULTAQ PO; +ZYLOPRIM300 MG PO
[2020-11-04 12:20] LABS: BILIRUBIN NEGATIVE (NEGATIVE); KETONE NEGATIVE (NEGATIVE); NITRITE NEGATIVE (NEGATIVE); UROBILINOGEN NORMAL mg/dL (< 2)
[2020-11-08] VITALS (21 sets, daily range): BP systolic 109–140; BP diastolic 61–85; BMI 32.3; BMI 35.2
--- NOTE | 2020-11-08 12:35 | NUR ---
RECEIVED PATIENT FROM OR, PATIENT LETHARGIC BUT ORIENTED AND ANSWERS QUESTIONS APPROPRIATELY. PATIENT WITH RIGHT IJ CVL WITH PLASMOLYTE INFUSING AT 50 ML/HR AND NTG AT 16.6 MCG/MIN (5ML/HR). LEFT WRIST ART LINE AND CVP LEVELED AND ZEROED. BILATERAL GROINS SOFT, NO HEMATOMA OR BLEEDING NOTED, DRESSINGS, C/D/I. BBS - CLEAR, DIMINISHED IN THE BASES, SPO2 - 100% ON SIMPLE MASK AT 12 LPM O2, CM - NSR RATE 95, CVP 3, RR 26. VIZCAINO CATH IN PLACE WITH CLEAR YELLOW UOP NOTED. HEAD TO TOE ASSESSMENT COMPLETED.
[2020-11-08 12:39] LABS: HEMATOCRIT 33.3 % (36.0-48.0); HEMOGLOBIN 10.9 g/dL (12-16); MCH 31.2 pg (26.0-34.0); MCHC 32.6 g/dL (31.0-37.0); MCV 95.7 fL (80.0-100.0); MEAN PLATELET VOLUME 8.5 fL (7.4-10.4); RBC 3.48 10x6/uL (4.00-5.40); RDW 14.5 % (11.5-14.5); WBC 14.5 10x3/uL (4.8-10.8)
[2020-11-08 12:48] LABS: ANION GAP 12.6 mmol/L (8-16); CALCIUM 8.6 mg/dL (8.5-10.1); CARBON DIOXIDE 25.9 mmol/L (21.0-32.0); CREATININE - SERUM 1.2 mg/dL (0.6-1.3); POTASSIUM - SERUM 4.5 mmol/L (3.5-5.1)
--- NOTE | 2020-11-08 13:22 | NUR ---
PATIENTS GRANDDAUGHTER (BIANCA) AT ROOM UPDATED AND QUESTIONS ANSWERED.
--- NOTE | 2020-11-08 13:25 | NUR ---
XRAY AT ROOM FOR CX4R.
--- NOTE | 2020-11-08 13:51 | NUR ---
DR. CAO AT ROOM UDPATED AND EXAMINES PATIENT.
--- NOTE | 2020-11-08 14:01 | NUR ---
DR. VINSON OFFICE NOTIFIED OF CONSULT, DR. SCHULTZ IS ON THIS WEEK.
--- NOTE | 2020-11-08 14:18 | NUR ---
FLAQUITO SEVILLA NOTIFIED OF CONSULT.
--- NOTE | 2020-11-08 14:40 | NUR ---
DR. BARKER OFFICE CONTACTED AND NOTIFIED OF CONSULT.
--- NOTE | 2020-11-08 15:15 | NUR ---
REASSESSMENT COMPLETED. VSS. GRANDDAUGHTER AT BEDSIDE.
--- NOTE | 2020-11-08 16:22 | NUR ---
DR. GIMENEZ CALLED BACK REGARDING CONSULT AND UPDATED ON PATIENT CONDITION.
--- NOTE | 2020-11-08 17:19 | NUR ---
DR. EPSITIA AT ROOM UPDATED AND EXAMINES PATIENT. ORDERS [facility] FOR [address] DALI.
[2020-11-08 18:30] LABS: ANION GAP 15.6 mmol/L (8-16); CALCIUM 8.2 mg/dL (8.5-10.1); CARBON DIOXIDE 23.2 mmol/L (21.0-32.0); POTASSIUM - SERUM 4.8 mmol/L (3.5-5.1)
[2020-11-08 18:31] LABS: CREATININE - SERUM 1.7 mg/dL (0.6-1.3)
[2020-11-09] VITALS (24 sets, daily range): BP systolic 113–1144; BP diastolic 62–91; Ht 160 cm; Wt 86.1 kg
[2020-11-09 05:00] LABS: HEMATOCRIT 29.8 % (36.0-48.0); HEMOGLOBIN 9.8 g/dL (12-16); MCH 31.4 pg (26.0-34.0); MCHC 32.7 g/dL (31.0-37.0); MCV 95.9 fL (80.0-100.0); MEAN PLATELET VOLUME 8.9 fL (7.4-10.4); RBC 3.11 10x6/uL (4.00-5.40); RDW 14.6 % (11.5-14.5); WBC 11.4 10x3/uL (4.8-10.8)
[2020-11-09 05:20] LABS: ALBUMIN 2.6 g/dL (3.4-5.0); ANION GAP 12.6 mmol/L (8-16); BILIRUBIN - TOTAL 0.37 mg/dL (0.2-1.3); CALCIUM 7.9 mg/dL (8.5-10.1); CREATININE - SERUM 1.8 mg/dL (0.6-1.3); MAGNESIUM - SERUM 2.1 mg/dL (1.8-2.4); POTASSIUM - SERUM 4.6 mmol/L (3.5-5.1); PROTEIN - SERUM 5.3 g/dL (6.4-8.2)
--- NOTE | 2020-11-09 07:45 | NUR ---
ASSISTED UP TO CHAIR AT THIS TIME. TOLERATED WELL. GRANDAUGHTER AT BEDSIDE. MEAL TRAY DELIVERED AND SET UP. NO FURTHER NEEDS AT THIS TIME.
--- NOTE | 2020-11-09 08:31 | NUR ---
EDEL TO LEFT HAND DC'D PER ORDER. PT TOLERATED WELL. SITTING UP IN CHAIR. DR. CAO AT BEDSIDE. OKAY TO INCREASE DIET TO REGULAR TOLERATED.
--- NOTE | 2020-11-09 08:45 | OP ---
PATIENT NAME: KIT AKHTAR MEDICAL RECORD: [id number] :40 LOCATION:D.CVI D.CV08 ADMISSION DATE:11/08/20 SURGEON: RONEY CAO MD DATE OF OPERATION: 11/08/2020 SURGEON: Ronye Cao MD. PROCEDURES PERFORMED: 1. Insertion of bifurcated aortic endograft for repair of abdominal aortic aneurysm. 2. Percutaneous exposure of bilateral common femoral arteries. 3. 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 Go Patel). 4. Aortogram times 2. 5. Iliac angiogram. 6. Graft angioplasty procedure. ANESTHESIA: General endotracheal anesthesia. ESTIMATED BLOOD LOSS: 400 mL with 200 mL Cell Saver. COMPLICATIONS: None. CONDITION: Stable. DISPOSITION: CV ICU. OPERATIVE FINDINGS: 1. Some difficulty cannulating the inferior left renal artery due to the angulated origin, but eventually coiled with no apparent flow. 2. Tortuous iliac arteries as expected, good exclusion of the abdominal aortic aneurysm after deploying the endograft and limbs. 3. Slight narrowing of the right femoral at the closure site on the closure iliac angiogram, but strong Doppler pulses bilaterally. 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 DESCRIPTION OF PROCEDURE: The patient was brought to the operative suite. General anesthesia was obtained. The patient was prepped and draped on both sides. The femoral artery was cannulated with micropuncture technique and ultrasound guidance. Using a wire, initially a 6-Nauruan sheath was placed. Then, 2 ProGlides were pre-deployed with the more lateral one on the right, having the foot pad not completely retracted. Later this one was failed and replaced at the conclusion of the case. Heparin was given. Sheaths were placed on both sides, the 8-Nauruan on the left and on the right due to bleeding, upsized to 10-Nauruan. Dr. Patel used the pigtail catheter to perform an aortogram. The inferior renal artery was selected and eventually coiled. A 16 sheath exchanged on the right over the stiff wire and then a 26-mm aortic body delivery system installed. The contralateral limb was cannulated by using the integrated wire site and a snare and on the left, 18 x 140 limb was placed on the right, the 18 x 120 limb bilaterally. The overlap was dilated with a 12 OPERATIVE REPORT [id number] KIT AKHTAR x 20 balloon. Completion angiogram revealed no endoleak and the pigtail catheter was pulled into the main body. Right limb was closed and completion angiogram revealed a slight narrowing. Left side was then closed using the ProGlides without difficulty. Good Doppler signal. Anesthesia reversed after giving the protamine. TRANSINT:[id number] Voice Confirmation ID: [id number] DOCUMENT ID: [id number] RONEY CAO MD at 0845 CC: OLAYINKA PATEL M.D. and FELIPA SALAMANCA [id number] DICTATION DATE: 11/08/20 1736 ADMITTING COUNSELOR: 11/09/20 0123 ADM IN [place] [id number] [place] [address]
--- NOTE | 2020-11-09 12:30 | NUR ---
ASSISTED BACK TO BED. ZINACEF FINISHED INFUSING. RIJ CVL SALINE LOCKED. VIZCAINO CATHETER DC'D WITH BALLOON INTACT. EMPTIED ABOUT 450ML OF CLEAR YELLOW URINE. PT RESTING COMFORTABLY IN BED. DENIES FURTHER NEEDS AT THIS TIME.
--- NOTE | 2020-11-09 14:54 | NUR ---
PT WANTS CHICKEN NOODLE SOUP, APPLE JUICE AND WATER FOR DINNER. NUTRITION AMBASSADOR NOTIFIED AT EXT. 0834
--- NOTE | 2020-11-09 17:01 | NUR ---
SITTING UP IN BED. MEAL TRAY DELIVERED AND SET UP. DENIES HAVING ANY PAIN AT THIS TIME. WILL CONTINUE TO MONITOR.
[2020-11-10] VITALS (22 sets, daily range): BP systolic 104–132; BP diastolic 47–76
--- NOTE | 2020-11-10 02:08 | NUR ---
PT BECOMING INCREASINGLY ANXIOUS ABOUT HOW TO CARE FOR SELF WHEN DISCHARGED. PT NOTED THAT SHE IS MUCH "WEAKER THAN I EVER THOUGHT I WOULD BE." PT HAS SAID "I JUST DON'T KNOW WHAT TO DO", MULTIPLE TIMES THROUGHOUT THE SHIFT. WHEN ASKED ABOUT SOMEONE TO HELP OUT FOR A FEW DAYS WHILE SHE GETS HER STRENTH BACK, PT STATES THAT THERE IS NO ONE THAT SHE CAN RELY ON. PT. COUNSELED ON POSSIBLE HOME HEALTH OR SHORT TERM REHAB. PT ALSO REASSURED THAT CASE MANAGEMENT AND PT WOULD BOTH BE CONSULTED TO SPEAK WITH HER REGARDING ARRANGEMENTS FOR SAFE DISCHARGE.
[2020-11-10 06:07] LABS: ALBUMIN 2.5 g/dL (3.4-5.0); ANION GAP 10.2 mmol/L (8-16); BILIRUBIN - TOTAL 0.48 mg/dL (0.2-1.3); CALCIUM 8.1 mg/dL (8.5-10.1); CARBON DIOXIDE 28.3 mmol/L (21.0-32.0); CREATININE - SERUM 1.9 mg/dL (0.6-1.3); POTASSIUM - SERUM 4.5 mmol/L (3.5-5.1); PROTEIN - SERUM 5.5 g/dL (6.4-8.2)
[2020-11-10 07:04] LABS: HEMATOCRIT 26.5 % (36.0-48.0); HEMOGLOBIN 8.7 g/dL (12-16); MCH 31.5 pg (26.0-34.0); MCHC 32.9 g/dL (31.0-37.0); MCV 95.7 fL (80.0-100.0); MEAN PLATELET VOLUME 9.6 fL (7.4-10.4); PLATELET COUNT 97 10x3/uL (130-400); RBC 2.77 10x6/uL (4.00-5.40); RDW 14.1 % (11.5-14.5); WBC 11.4 10x3/uL (4.8-10.8)
[2020-11-10 07:23] LABS: PLATELET ESTIMATE NORMAL
--- NOTE | 2020-11-10 07:36 | NUR ---
0600 - PT GIVEN CHG BATH AND COMPLETE LINEN CHANGE. PT THEN ASSISTED TO CHAIR.
--- NOTE | 2020-11-10 07:37 | NUR ---
DR. ESPITIA AT BEDSIDE. REQUESTED BLADDER SCAN BE DONE TO MAKE SURE THAT PT IS NOT RETAINING URINE. PT URINATED 175CC AND SCAN DONE IMMEDIATELY AFTER VOID SHOWS 124CC REMAIN. DR. ESPITIA AWARE OF RESULTS
--- NOTE | 2020-11-10 18:53 | MORECARE ---
CASE MANAGEMENT DISCHARGE SUMMARY PATIENT: KIT AKHTAR UNIT: [id number] ADM DATE: 11/08/20 AGE: 79 : 40 SEX: F ROOM/BED: [facility] AUTHOR: JONATHANDOC PHYSICIAN: REFERRING PHYSICIAN: VALENCIA CAO MD DATE OF SERVICE: 11/10/20 Case Management Discharge Planning Summary DCP REVIEW SUMMARY ANTICIPATED D/C DATE: EXPECTED LOS : CASE STATUS: DCP Initiated INITIAL REVIEW: 11/10/2020 INITIAL REVIEWER: Annmarie Padilla FINAL DISCHARGE DISPOSITION: : FINAL REVIEWER: FINAL REVIEW DATE: DCP Focus Questions & Answers DCP Screen QUESTION: ANSWER High Risk Factors: : None Walking limitation: Patient stated self rated walking limitation present? : Yes Age: : 65 - 79 Prior living environment: : Lives Alone Disability ranking: : Grade 1: No significant disability DCP Evaluation QUESTION: ANSWER Patient's ability to cope with chronic illness : d. No chronic illness Would patient like to participate in any Care Coordination programs (if applicable): : Not applicable Mental health screen: : No mental health history DCP Re-evaluation QUESTION: ANSWER Would patient like to participate in any Care Coordination programs (if applicable): : Not applicable PATIENT: KIT AKHTAR ENCOUNTER: [id number] MEDICAL RECORD#: [id number] ADMISSION DATE: 11/08/2020 DISCHARGE DATE: ATTENDING MD: VALENCIA WALTON : AGE: 79 MARITAL STATUS: W DC PLAN ID: [id number] FACILITY: [facility] PRINTED ON: 11/10/20 18:53 CT All edits/amendments must be made on the electronic document DICTATION DATE: 11/10/201851 FISH ROE TECHNICIAN: NICKI 11/10/201851 RPT#: [id number] DC DATE: STATUS: ADM IN [place] [address] [place] [address] END OF REPORT
--- NOTE | 2020-11-10 19:03 | MORECARE ---
CASE MANAGEMENT DISCHARGE SUMMARY PATIENT: KIT AKHTAR UNIT: [id number] ADM DATE: 11/08/20 AGE: 79 : 40 SEX: F ROOM/BED: [facility] AUTHOR: JONATHANDOC PHYSICIAN: REFERRING PHYSICIAN: VALENCIA CAO MD DATE OF SERVICE: 11/10/20 Case Management Discharge Planning Summary DCP REVIEW SUMMARY ANTICIPATED D/C DATE: EXPECTED LOS : CASE STATUS: DCP Initiated INITIAL REVIEW: 11/10/2020 INITIAL REVIEWER: Annmarie Padilla FINAL DISCHARGE DISPOSITION: : FINAL REVIEWER: FINAL REVIEW DATE: DCP Focus Questions & Answers DCP Screen QUESTION: ANSWER High Risk Factors: : None Walking limitation: Patient stated self rated walking limitation present? : Yes Age: : 65 - 79 Prior living environment: : Lives Alone Disability ranking: : Grade 1: No significant disability DCP Evaluation QUESTION: ANSWER Patient and/or caregiver agree upon recommended discharge plan? : Yes Family / Caregiver's ability to cope with chronic illness: : a. Adequate (ability to meet patient's medical needs, ensures patient attends medical appts.) Patient's current cognitive status: : *Oriented to person, place, situation, time and present Patient's ability to cope with chronic illness : d. No chronic illness Functional screen assessment: : Basic needs can adequately be met by self Family / Caregiver's ability to cope with chronic illness: : a. Adequate (ability to meet patient's medical needs, ensures patient attends medical appts.) Physical Status: : Independent with ADL's Equipment needed for post hospitalization: : None Is there a likelihood that the patient will require additional services to return to the preadmission environment? : No Living Arrangements: : Home Alone with No Support Results of this evaluation have been discussed with: : Patient Patient with capacity for self-care or can be cared for in same environment as prior to hospitalization? : Yes Baseline cognitive status: : *Oriented to person, place, situation, time and present Physical environment modification needed / anticipated for discharge: : No Preadmission facility can/cannot provide post hospital level of care needs: : Can - at same level of care as preadmission Medication Management: : Patient states can afford medications Planned post hospital services available for patient? : N/A Pharmacy name(s): : [facility] on [address] Planned post hospital services covered by insurance plan? : N/A Does Patient have transportation to get home and to follow-up medical appointments when discharged from the hospital? : Yes Comments: : Her friend, Huey Maciel will drive her home upon DC and to her appointments Would patient like to participate in any Care Coordination programs (if applicable): : Not applicable Does the patient have electricity at home? : Yes Does the patient have running water in their house? : Yes Equipment in use: : CPAP Equipment in use: : Cane - Quad Equipment agency name and contact information: : [facility] on [facility] [address] Mental health screen: : No mental health history Psychosocial status: : Independent adult (65+) Abuse/Neglect: : None Resources / Services in place: : None DCP Re-evaluation QUESTION: ANSWER Would patient like to participate in any Care Coordination programs (if applicable): : Not applicable PATIENT: KIT AKHTAR ENCOUNTER: [id number] MEDICAL RECORD#: [id number] ADMISSION DATE: 11/08/2020 DISCHARGE DATE: ATTENDING MD: VALENCIA WALTON : AGE: 79 MARITAL STATUS: W DC PLAN ID: [id number] FACILITY: [facility] PRINTED ON: 11/10/20 19:03 CT All edits/amendments must be made on the electronic document DICTATION DATE: 11/10/201902 FORESTRY BIOLOGY SPECIALIST: NICKI 11/10/201902 RPT#: [id number] DC DATE: STATUS: ADM IN [facility] [address] [place] [address] END OF REPORT
--- NOTE | 2020-11-10 19:13 | MORECARE ---
CASE MANAGEMENT DISCHARGE SUMMARY PATIENT: KIT AKHTAR UNIT: [id number] ADM DATE: 11/08/20 AGE: 79 : 40 SEX: F ROOM/BED: D.08 AUTHOR: JONATHAN,DOC PHYSICIAN: REFERRING PHYSICIAN: VALENCIA CAO MD DATE OF SERVICE: 11/10/20 Case Management Discharge Planning Summary COMMENTS ENTERED DATE: 11/10/20 18:59 CT COMMENT TYPE: Discharge Planning REVIEWER: Annmarie Padilla CM met with patient to discuss discharge planning / needs. CM discussed availability of home health, rehab services, and medical equipment. Patient states she plans to discharge to home where she lives alone. States she does not feel safe to discharge today because she feels weak. States she was independent prior to hospitalization but she is not as strong as she was before. CM encouraged patient and discussed that she was able to ambulate 150` with therapy today and hopefully she will feel stronger tomorrow. Patient agreed. States she has a sister that lives in [place]. But she has her hands full taking care of her that has Alzheimer's. States she has a granddaughter that lives in [place] but she is not available all the time because she works. States her friend, Huey Maciel will transport her home upon discharge. Dr. Wall is her PCP and she uses [facility] pharmacy on [address]. Denies any discharge planning needs at this time. CM will continue to follow and see if patient needs any post acute care upon hospital DC. DCP REVIEW SUMMARY ANTICIPATED D/C DATE: EXPECTED LOS : CASE STATUS: DCP Initiated INITIAL REVIEW: 11/10/2020 INITIAL REVIEWER: Annmarie Padilla FINAL DISCHARGE DISPOSITION: : FINAL REVIEWER: FINAL REVIEW DATE: DCP Focus Questions & Answers DCP Screen QUESTION: ANSWER High Risk Factors: : None Walking limitation: Patient stated self rated walking limitation present? : Yes Age: : 65 - 79 Prior living environment: : Lives Alone Disability ranking: : Grade 1: No significant disability DCP Evaluation QUESTION: ANSWER Patient and/or caregiver agree upon recommended discharge plan? : Yes Family / Caregiver's ability to cope with chronic illness: : a. Adequate (ability to meet patient's medical needs, ensures patient attends medical appts.) Patient's current cognitive status: : *Oriented to person, place, situation, time and present Patient's ability to cope with chronic illness : d. No chronic illness Functional screen assessment: : Basic needs can adequately be met by self Family / Caregiver's ability to cope with chronic illness: : a. Adequate (ability to meet patient's medical needs, ensures patient attends medical appts.) Physical Status: : Independent with ADL's Equipment needed for post hospitalization: : None Is there a likelihood that the patient will require additional services to return to the preadmission environment? : No Living Arrangements: : Home Alone with No Support Results of this evaluation have been discussed with: : Patient Patient with capacity for self-care or can be cared for in same environment as prior to hospitalization? : Yes Baseline cognitive status: : *Oriented to person, place, situation, time and present Physical environment modification needed / anticipated for discharge: : No Preadmission facility can/cannot provide post hospital level of care needs: : Can - at same level of care as preadmission Medication Management: : Patient states can afford medications Planned post hospital services available for patient? : N/A Pharmacy name(s): : [facility] on [address] Planned post hospital services covered by insurance plan? : N/A Does Patient have transportation to get home and to follow-up medical appointments when discharged from the hospital? : Yes Comments: : Her friend, Huey Maciel will drive her home upon DC and to her appointments Would patient like to participate in any Care Coordination programs (if applicable): : Not applicable Does the patient have electricity at home? : Yes Does the patient have running water in their house? : Yes Equipment in use: : CPAP Equipment in use: : Cane - Quad Equipment agency name and contact information: : [facility] [place] on [address] screen: : No mental health history Psychosocial status: : Independent adult (65+) Abuse/Neglect: : None Resources / Services in place: : None DCP Re-evaluation QUESTION: ANSWER Would patient like to participate in any Care Coordination programs (if applicable): : Not applicable PATIENT: KIT AKHTAR ENCOUNTER: [id number] MEDICAL RECORD#: [id number] ADMISSION DATE: 11/08/2020 DISCHARGE DATE: ATTENDING MD: VALENCIA WALTON : AGE: 79 MARITAL STATUS: W DC PLAN ID: [id number] FACILITY: [facility] PRINTED ON: 11/10/20 19:13 CT All edits/amendments must be made on the electronic document DICTATION DATE: 11/10/201912 CARDIAC TECHNICIAN: NICKI 11/10/201912 RPT#: [id number] DC DATE: STATUS: ADM IN [facility] [address] [place] [address] END OF REPORT
[2020-11-11] VITALS (18 sets, daily range): BP systolic 101–128; BP diastolic 56–88
[2020-11-11 05:56] LABS: HEMATOCRIT 26.4 % (36.0-48.0); HEMOGLOBIN 8.8 g/dL (12-16); MCH 32.1 pg (26.0-34.0); MCHC 33.5 g/dL (31.0-37.0); MCV 95.9 fL (80.0-100.0); RBC 2.75 10x6/uL (4.00-5.40); RDW 14.5 % (11.5-14.5); WBC 10.5 10x3/uL (4.8-10.8)
[2020-11-11 06:27] LABS: ALBUMIN 2.6 g/dL (3.4-5.0); ANION GAP 10.4 mmol/L (8-16); BILIRUBIN - TOTAL 0.54 mg/dL (0.2-1.3); CALCIUM 8.6 mg/dL (8.5-10.1); CARBON DIOXIDE 25.8 mmol/L (21.0-32.0); POTASSIUM - SERUM 4.2 mmol/L (3.5-5.1); PROTEIN - SERUM 5.9 g/dL (6.4-8.2)
--- NOTE | 2020-11-11 10:31 | NUR ---
DR. BENSON NOTIFIED OF PATIENT BEING IN CONTROLLED ATRIAL FIB. NEW ORDERS REC'D.
--- NOTE | 2020-11-11 11:28 | NUR ---
REHAB PRESCREEN RECEIVED. AFTER LOOKING IN HER CHART AND COLLABORATING WITH REGINALDO VEGA ON THE ACUTE SIDE, IT IS FELT THAT THE PATIENT IS TOO HIGH FUNCTIONING FOR INPATIENT REHAB, BUT MAY BENEFIT FOR SOME HOME HEALTH FOR THERAPY CARRY OVER AND HOME SAFETY EDUCATION. I HAVE CALLED AND DISCUSSED THIS WITH PORTILLO RUBY RN CM DIRECTOR. THANK YOU FOR THIS REFERRAL. LIANE MENENDEZ RN CLINICAL LIAISON, INPATIENT [facility].
--- NOTE | 2020-11-11 12:13 | NUR ---
Nutrition Follow-up: POD 3 AAA repair. Pt reports poor appetite. Denies N/V. -BM; +flatus. Reports occasional difficulty swallowing but that she know what it is and how to deal with it. Declines nutrition supplements at this time. Diet: Cardiac Carb Consistent Wt: 189# (11/11) Labs noted: Cre 2.0, GFR 25, Glu 99, Alb 2.6 Meds noted: Senokot, Colace -Encourage PO intake and honor food preferences within diet restrictions. -Offer nutrition supplements. -RD will follow up within 3-4 days.
--- NOTE | 2020-11-11 12:17 | NUR ---
BLADDER SCAN DONE AFTER VOIDED. NO RESIDUAL.
--- NOTE | 2020-11-11 13:47 | MORECARE ---
CASE MANAGEMENT DISCHARGE SUMMARY PATIENT: KIT AKHTAR UNIT: [id number] ADM DATE: 11/08/20 AGE: 79 : 40 SEX: F ROOM/BED: [facility] AUTHOR: JONATHAN,DOC PHYSICIAN: REFERRING PHYSICIAN: VALENCIA CAO MD DATE OF SERVICE: 11/11/20 Case Management Discharge Planning Summary COMMENTS ENTERED DATE: 11/11/20 13:41 CT COMMENT TYPE: Discharge Planning REVIEWER: Annmarie Padilla Late entry for 11:30 CM notified by Moraima Ham, [facility] rehab, that patient was too high functioning for rehab. ENTERED DATE: 11/11/20 13:31 CT COMMENT TYPE: Discharge Planning REVIEWER: Annmarie Padilla Late entry for 11:11 CM met with patient to discuss request for rehab. Patient states she still does not feel strong enough to go home alone. CM discussed availability of home health, rehab services, and SNF services. Patient signed BRENT for [facility] IRF. Declined to choose potential SNF or Home Health at this time. Wants to wait until she hears determination for rehab. CM notified Moraima Ham at [facility] IR[facility] about referral. Awaiting determination. ENTERED DATE: 11/10/20 18:59 CT COMMENT TYPE: Discharge Planning REVIEWER: Annmarie Padilla CM met with patient to discuss discharge planning / needs. CM discussed availability of home health, rehab services, and medical equipment. Patient states she plans to discharge to home where she lives alone. States she does not feel safe to discharge today because she feels weak. States she was independent prior to hospitalization but she is not as strong as she was before. CM encouraged patient and discussed that she was able to ambulate 150` with therapy today and hopefully she will feel stronger tomorrow. Patient agreed. States she has a sister that lives in [place]. But she has her hands full taking care of her that has Alzheimer's. States she has a granddaughter that lives in [place] but she is not available all the time because she works. States her friend, Huey Maciel will transport her home upon discharge. Dr. Wall is her PCP and she uses [facility] pharmacy on [address]. Denies any discharge planning needs at this time. CM will continue to follow and see if patient needs any post acute care upon hospital DC. DCP REVIEW SUMMARY ANTICIPATED D/C DATE: EXPECTED LOS : CASE STATUS: DCP Initiated INITIAL REVIEW: 11/10/2020 INITIAL REVIEWER: Annmarie Padilla FINAL DISCHARGE DISPOSITION: : FINAL REVIEWER: FINAL REVIEW DATE: DCP Focus Questions & Answers DCP Screen QUESTION: ANSWER High Risk Factors: : None Walking limitation: Patient stated self rated walking limitation present? : Yes Age: : 65 - 79 Prior living environment: : Lives Alone Disability ranking: : Grade 1: No significant disability DCP Evaluation QUESTION: ANSWER Patient and/or caregiver agree upon recommended discharge plan? : Yes Family / Caregiver's ability to cope with chronic illness: : a. Adequate (ability to meet patient's medical needs, ensures patient attends medical appts.) Patient's current cognitive status: : *Oriented to person, place, situation, time and present Patient's ability to cope with chronic illness : d. No chronic illness Functional screen assessment: : Basic needs can adequately be met by self Family / Caregiver's ability to cope with chronic illness: : a. Adequate (ability to meet patient's medical needs, ensures patient attends medical appts.) Physical Status: : Independent with ADL's Equipment needed for post hospitalization: : None Is there a likelihood that the patient will require additional services to return to the preadmission environment? : No Living Arrangements: : Home Alone with No Support Results of this evaluation have been discussed with: : Patient Patient with capacity for self-care or can be cared for in same environment as prior to hospitalization? : Yes Baseline cognitive status: : *Oriented to person, place, situation, time and present Physical environment modification needed / anticipated for discharge: : No Preadmission facility can/cannot provide post hospital level of care needs: : Can - at same level of care as preadmission Medication Management: : Patient states can afford medications Planned post hospital services available for patient? : N/A Pharmacy name(s): : [facility] [address] Planned post hospital services covered by insurance plan? : N/A Does Patient have transportation to get home and to follow-up medical appointments when discharged from the hospital? : Yes Comments: : Her friend, Huey Maciel will drive her home upon DC and to her appointments Would patient like to participate in any Care Coordination programs (if applicable): : Not applicable Does the patient have electricity at home? : Yes Does the patient have running water in their house? : Yes Equipment in use: : CPAP Equipment in use: : Cane - Quad Equipment agency name and contact information: : [facility] on [facility] [address] Mental health screen: : No mental health history Psychosocial status: : Independent adult (65+) Abuse/Neglect: : None Resources / Services in place: : None DCP Re-evaluation QUESTION: ANSWER Would patient like to participate in any Care Coordination programs (if applicable): : Not applicable PATIENT: KIT AKHTAR ENCOUNTER: [id number] MEDICAL RECORD#: [id number] ADMISSION DATE: 11/08/2020 DISCHARGE DATE: ATTENDING MD: VALENCIA WALTON : AGE: 79 MARITAL STATUS: W DC PLAN ID: [id number] FACILITY: [facility] PRINTED ON: 11/11/20 13:47 CT All edits/amendments must be made on the electronic document DICTATION DATE: 11/11/201346 FINANCIAL SERVICES INTERNSHIP: NICKI 11/11/20 1347 RPT#: [id number] DC DATE: STATUS: ADM IN [facility] [address] [place] [address] END OF REPORT
[2020-11-11] MEDS ORDERED: MULTAQ400 MG PO (14:10)
--- NOTE | 2020-11-11 14:12 | MORECARE ---
CASE MANAGEMENT DISCHARGE SUMMARY PATIENT: KIT AKHTAR UNIT: [id number] ADM DATE: 11/08/20 AGE: 79 : 40 SEX: F ROOM/BED: [facility] AUTHOR: JONATHAN,DOC PHYSICIAN: REFERRING PHYSICIAN: VALENCIA CAO MD DATE OF SERVICE: 11/11/20 Case Management Discharge Planning Summary COMMENTS ENTERED DATE: 11/11/20 13:42 CT COMMENT TYPE: Discharge Planning REVIEWER: Annmarie Padilla 13:10 CM informed patient of denial for rehab. Offered list of SNF and Home Health. Patient states she would like to speak with her granddaughter about this decision. States she is at work right now, but she will text her. CM informed patient that home health is available to admit her tomorrow if she was interested in that services. CM awaiting patient's decision. ENTERED DATE: 11/11/20 13:41 CT COMMENT TYPE: Discharge Planning REVIEWER: Annmarie Padilla Late entry for 11:30 CM notified by Moraima Ham, [facility] rehab, that patient was too high functioning for rehab. ENTERED DATE: 11/11/20 13:31 CT COMMENT TYPE: Discharge Planning REVIEWER: Annmarie Padilla Late entry for 11:11 CM met with patient to discuss request for rehab. Patient states she still does not feel strong enough to go home alone. CM discussed availability of home health, rehab services, and SNF services. Patient signed BRENT for [facility] IRF. Declined to choose potential SNF or Home Health at this time. Wants to wait until she hears determination for rehab. CM notified Moraima Ham at [facility] IR[facility] about referral. Awaiting determination. ENTERED DATE: 11/10/20 18:59 CT COMMENT TYPE: Discharge Planning REVIEWER: Annmarie Padilla CM met with patient to discuss discharge planning / needs. CM discussed availability of home health, rehab services, and medical equipment. Patient states she plans to discharge to home where she lives alone. States she does not feel safe to discharge today because she feels weak. States she was independent prior to hospitalization but she is not as strong as she was before. CM encouraged patient and discussed that she was able to ambulate 150` with therapy today and hopefully she will feel stronger tomorrow. Patient agreed. States she has a sister that lives in [place]. But she has her hands full taking care of her that has Alzheimer's. States she has a granddaughter that lives in [place] but she is not available all the time because she works. States her friend, Huey Maciel will transport her home upon discharge. Dr. Wall is her PCP and she uses [facility] pharmacy on [address]. Denies any discharge planning needs at this time. CM will continue to follow and see if patient needs any post acute care upon hospital DC. DCP REVIEW SUMMARY ANTICIPATED D/C DATE: EXPECTED LOS : CASE STATUS: DCP Initiated INITIAL REVIEW: 11/10/2020 INITIAL REVIEWER: Annmarie Padilla FINAL DISCHARGE DISPOSITION: : FINAL REVIEWER: FINAL REVIEW DATE: DCP Focus Questions & Answers DCP Screen QUESTION: ANSWER High Risk Factors: : None Walking limitation: Patient stated self rated walking limitation present? : Yes Age: : 65 - 79 Prior living environment: : Lives Alone Disability ranking: : Grade 1: No significant disability DCP Evaluation QUESTION: ANSWER Patient and/or caregiver agree upon recommended discharge plan? : Yes Family / Caregiver's ability to cope with chronic illness: : a. Adequate (ability to meet patient's medical needs, ensures patient attends medical appts.) Patient's current cognitive status: : *Oriented to person, place, situation, time and present Patient's ability to cope with chronic illness : d. No chronic illness Functional screen assessment: : Basic needs can adequately be met by self Family / Caregiver's ability to cope with chronic illness: : a. Adequate (ability to meet patient's medical needs, ensures patient attends medical appts.) Physical Status: : Independent with ADL's Equipment needed for post hospitalization: : None Is there a likelihood that the patient will require additional services to return to the preadmission environment? : No Living Arrangements: : Home Alone with No Support Results of this evaluation have been discussed with: : Patient Patient with capacity for self-care or can be cared for in same environment as prior to hospitalization? : Yes Baseline cognitive status: : *Oriented to person, place, situation, time and present Physical environment modification needed / anticipated for discharge: : No Preadmission facility can/cannot provide post hospital level of care needs: : Can - at same level of care as preadmission Medication Management: : Patient states can afford medications Planned post hospital services available for patient? : N/A Pharmacy name(s): : [facility] on [address] Planned post hospital services covered by insurance plan? : N/A Does Patient have transportation to get home and to follow-up medical appointments when discharged from the hospital? : Yes Comments: : Her friend, Huey Maciel will drive her home upon DC and to her appointments Would patient like to participate in any Care Coordination programs (if applicable): : Not applicable Does the patient have electricity at home? : Yes Does the patient have running water in their house? : Yes Equipment in use: : CPAP Equipment in use: : Cane - Quad Equipment agency name and contact information: : [facility] screen: : No mental health history Psychosocial status: : Independent adult (65+) Abuse/Neglect: : None Resources / Services in place: : None DCP Re-evaluation QUESTION: ANSWER Would patient like to participate in any Care Coordination programs (if applicable): : Not applicable PATIENT: KIT AKHTAR ENCOUNTER: [id number] MEDICAL RECORD#: [id number] ADMISSION DATE: 11/08/2020 DISCHARGE DATE: ATTENDING MD: VALENCIA WALTON : AGE: 79 MARITAL STATUS: W DC PLAN ID: [id number] FACILITY: [facility] PRINTED ON: 11/11/20 14:12 CT All edits/amendments must be made on the electronic document DICTATION DATE: 11/11/201411 ACCOUNTS OFFICER: NICKI 11/11/201411 RPT#: [id number] DC DATE: STATUS: ADM IN [facility] [address] [place] [address] END OF REPORT
--- NOTE | 2020-11-11 14:18 | NUR ---
AMBULATED TO [facility] WITH MINIMAL ASSIST. VOIDED ABOUT 200ML OF YELLOW URINE. DUE TO URGENCY OF VOIDING, PT WAS NOT ABLE TO CLEAN PERINEAL AREA IN ORDER TO COLLECT URINE SAMPLE AT THIS TIME.
--- NOTE | 2020-11-11 15:55 | MORECARE ---
CASE MANAGEMENT DISCHARGE SUMMARY PATIENT: KIT AKHTAR UNIT: [id number] ADM DATE: 11/08/20 AGE: 79 : 40 SEX: F ROOM/BED: [facility] AUTHOR: JONATHAN,DOC PHYSICIAN: REFERRING PHYSICIAN: VALENCIA CAO MD DATE OF SERVICE: 11/11/20 Case Management Discharge Planning Summary COMMENTS ENTERED DATE: 11/11/20 13:42 CT COMMENT TYPE: Discharge Planning REVIEWER: Annmarie Padilla 13:10 CM informed patient of denial for rehab. Offered list of SNF and Home Health. Patient states she would like to speak with her granddaughter about this decision. States she is at work right now, but she will text her. CM informed patient that home health is available to admit her tomorrow if she was interested in that services. CM awaiting patient's decision. ENTERED DATE: 11/11/20 13:41 CT COMMENT TYPE: Discharge Planning REVIEWER: Annmarie Padilla Late entry for 11:30 CM notified by Moraima Ham, [facility] rehab, that patient was too high functioning for rehab. ENTERED DATE: 11/11/20 13:31 CT COMMENT TYPE: Discharge Planning REVIEWER: Annmarie Padilla Late entry for 11:11 CM met with patient to discuss request for rehab. Patient states she still does not feel strong enough to go home alone. CM discussed availability of home health, rehab services, and SNF services. Patient signed BRENT for [facility] IRF. Declined to choose potential SNF or Home Health at this time. Wants to wait until she hears determination for rehab. CM notified Moraima Ham at [facility] IR[facility] about referral. Awaiting determination. ENTERED DATE: 11/10/20 18:59 CT COMMENT TYPE: Discharge Planning REVIEWER: Annmarie Padilla CM met with patient to discuss discharge planning / needs. CM discussed availability of home health, rehab services, and medical equipment. Patient states she plans to discharge to home where she lives alone. States she does not feel safe to discharge today because she feels weak. States she was independent prior to hospitalization but she is not as strong as she was before. CM encouraged patient and discussed that she was able to ambulate 150` with therapy today and hopefully she will feel stronger tomorrow. Patient agreed. States she has a sister that lives in [place]. But she has her hands full taking care of her that has Alzheimer's. States she has a granddaughter that lives in [place] but she is not available all the time because she works. States her friend, Huey Maciel will transport her home upon discharge. Dr. Wall is her PCP and she uses [facility] on [address]. Denies any discharge planning needs at this time. CM will continue to follow and see if patient needs any post acute care upon hospital DC. DCP REVIEW SUMMARY ANTICIPATED D/C DATE: EXPECTED LOS : CASE STATUS: DCP Initiated INITIAL REVIEW: 11/10/2020 INITIAL REVIEWER: Annmarie Padilla FINAL DISCHARGE DISPOSITION: : FINAL REVIEWER: FINAL REVIEW DATE: DCP Focus Questions & Answers DCP Screen QUESTION: ANSWER High Risk Factors: : None Walking limitation: Patient stated self rated walking limitation present? : Yes Age: : 65 - 79 Prior living environment: : Lives Alone Disability ranking: : Grade 1: No significant disability DCP Evaluation QUESTION: ANSWER Patient and/or caregiver agree upon recommended discharge plan? : Yes Family / Caregiver's ability to cope with chronic illness: : a. Adequate (ability to meet patient's medical needs, ensures patient attends medical appts.) Patient's current cognitive status: : *Oriented to person, place, situation, time and present Patient's ability to cope with chronic illness : d. No chronic illness Functional screen assessment: : Basic needs can adequately be met by self Family / Caregiver's ability to cope with chronic illness: : a. Adequate (ability to meet patient's medical needs, ensures patient attends medical appts.) Physical Status: : Independent with ADL's Equipment needed for post hospitalization: : None Is there a likelihood that the patient will require additional services to return to the preadmission environment? : No Living Arrangements: : Home Alone with No Support Results of this evaluation have been discussed with: : Patient Patient with capacity for self-care or can be cared for in same environment as prior to hospitalization? : Yes Baseline cognitive status: : *Oriented to person, place, situation, time and present Physical environment modification needed / anticipated for discharge: : No Preadmission facility can/cannot provide post hospital level of care needs: : Can - at same level of care as preadmission Medication Management: : Patient states can afford medications Planned post hospital services available for patient? : N/A Pharmacy name(s): : [facility] on [address] Planned post hospital services covered by insurance plan? : N/A Does Patient have transportation to get home and to follow-up medical appointments when discharged from the hospital? : Yes Comments: : Her friend, Huey Maciel will drive her home upon DC and to her appointments Would patient like to participate in any Care Coordination programs (if applicable): : Not applicable Does the patient have electricity at home? : Yes Does the patient have running water in their house? : Yes Equipment in use: : CPAP Equipment in use: : Cane - Quad Equipment agency name and contact information: : [facility] screen: : No mental health history Psychosocial status: : Independent adult (65+) Abuse/Neglect: : None Resources / Services in place: : None DCP Re-evaluation QUESTION: ANSWER Would patient like to participate in any Care Coordination programs (if applicable): : Not applicable PATIENT: KIT AKHTAR ENCOUNTER: [id number] MEDICAL RECORD#: [id number] ADMISSION DATE: 11/08/2020 DISCHARGE DATE: ATTENDING MD: VALENCIA WALTON : AGE: 79 MARITAL STATUS: W DC PLAN ID: [id number] FACILITY: [facility] PRINTED ON: 11/11/20 15:55 CT All edits/amendments must be made on the electronic document DICTATION DATE: 11/11/201553 COOK FRUIT: NICKI 11/11/20 155 RPT#: [id number] DC DATE: STATUS: ADM IN [facility] [address] [place] [address] END OF REPORT
--- NOTE | 2020-11-11 16:08 | MORECARE ---
CASE MANAGEMENT DISCHARGE SUMMARY PATIENT: KIT AKHTAR UNIT: [id number] ADM DATE: 11/08/20 AGE: 79 : 40 SEX: F ROOM/BED: D.08 AUTHOR: JONATHAN,DOC PHYSICIAN: REFERRING PHYSICIAN: VALENCIA CAO MD DATE OF SERVICE: 11/11/20 Case Management Discharge Planning Summary COMMENTS ENTERED DATE: 11/11/20 15:52 CT COMMENT TYPE: Discharge Planning REVIEWER: Annmarie Padilla CM informed by patient that her first choice is to go to [facility] SNF and her second choice is to go home with [facility]. CM called and spoke with Shakira at [facility] about referral. Facility is not able to accept referral at this time. Told CM they are full and won't be able to take any referrals this week or next week. CM informed patient of this. Patient has decided she will go home with home health. Her granddaughter, Maggie, will pick her up from the hospital when she gets off work around 16:30. Granddaughter will stay with the patient this weekend. CM called [facility]. Spoke with Ye. Agency will admit on Saturday and PT will eval on Saturday. CM informed patient who verbalized understanding and satisfaction with DCP. CM [facility]. ENTERED DATE: 11/11/20 13:42 CT COMMENT TYPE: Discharge Planning REVIEWER: Annmarie Padilla 13:10 CM informed patient of denial for rehab. Offered list of SNF and Home Health. Patient states she would like to speak with her granddaughter about this decision. States she is at work right now, but she will text her. CM informed patient that home health is available to admit her tomorrow if she was interested in that services. CM awaiting patient's decision. ENTERED DATE: 11/11/20 13:41 CT COMMENT TYPE: Discharge Planning REVIEWER: Annmarie Padilla Late entry for 11:30 CM notified by Moraima Ham, [facility] rehab, that patient was too high functioning for rehab. ENTERED DATE: 11/11/20 13:31 CT COMMENT TYPE: Discharge Planning REVIEWER: Annmarie Padilla Late entry for 11:11 CM met with patient to discuss request for rehab. Patient states she still does not feel strong enough to go home alone. CM discussed availability of home health, rehab services, and SNF services. Patient signed BRENT for [facility] IRF. Declined to choose potential SNF or Home Health at this time. Wants to wait until she hears determination for rehab. CM notified Moraima Ham at [facility] IR[facility] about referral. Awaiting determination. ENTERED DATE: 11/10/20 18:59 CT COMMENT TYPE: Discharge Planning REVIEWER: Annmarie Padilla CM met with patient to discuss discharge planning / needs. CM discussed availability of home health, rehab services, and medical equipment. Patient states she plans to discharge to home where she lives alone. States she does not feel safe to discharge today because she feels weak. States she was independent prior to hospitalization but she is not as strong as she was before. CM encouraged patient and discussed that she was able to ambulate 150` with therapy today and hopefully she will feel stronger tomorrow. Patient agreed. States she has a sister that lives in [place]. But she has her hands full taking care of her that has Alzheimer's. States she has a granddaughter that lives in [place] but she is not available all the time because she works. States her friend, Huey Maciel will transport her home upon discharge. Dr. Wall is her PCP and she uses [facility] on [address]. Denies any discharge planning needs at this time. CM will continue to follow and see if patient needs any post acute care upon hospital DC. DCP REVIEW SUMMARY ANTICIPATED D/C DATE: EXPECTED LOS : CASE STATUS: DCP Initiated INITIAL REVIEW: 11/10/2020 INITIAL REVIEWER: Annmarie Padilla FINAL DISCHARGE DISPOSITION: : FINAL REVIEWER: FINAL REVIEW DATE: DCP Focus Questions & Answers DCP Screen QUESTION: ANSWER High Risk Factors: : None Walking limitation: Patient stated self rated walking limitation present? : Yes Age: : 65 - 79 Prior living environment: : Lives Alone Disability ranking: : Grade 1: No significant disability DCP Evaluation QUESTION: ANSWER Patient and/or caregiver agree upon recommended discharge plan? : Yes Family / Caregiver's ability to cope with chronic illness: : a. Adequate (ability to meet patient's medical needs, ensures patient attends medical appts.) Patient's current cognitive status: : *Oriented to person, place, situation, time and present Patient's ability to cope with chronic illness : d. No chronic illness Functional screen assessment: : Basic needs can adequately be met by self Family / Caregiver's ability to cope with chronic illness: : a. Adequate (ability to meet patient's medical needs, ensures patient attends medical appts.) Physical Status: : Independent with ADL's Equipment needed for post hospitalization: : None Is there a likelihood that the patient will require additional services to return to the preadmission environment? : No Living Arrangements: : Home Alone with No Support Results of this evaluation have been discussed with: : Patient Patient with capacity for self-care or can be cared for in same environment as prior to hospitalization? : Yes Baseline cognitive status: : *Oriented to person, place, situation, time and present Physical environment modification needed / anticipated for discharge: : No Preadmission facility can/cannot provide post hospital level of care needs: : Can - at same level of care as preadmission Medication Management: : Patient states can afford medications Planned post hospital services available for patient? : N/A Pharmacy name(s): : [facility] on Planned post hospital services covered by insurance plan? : N/A Does Patient have transportation to get home and to follow-up medical appointments when discharged from the hospital? : Yes Comments: : Her friend, Huey Maciel will drive her home upon DC and to her appointments Would patient like to participate in any Care Coordination programs (if applicable): : Not applicable Does the patient have electricity at home? : Yes Does the patient have running water in their house? : Yes Equipment in use: : CPAP Equipment in use: : Cane - Quad Equipment agency name and contact information: : [facility] [address] Mental health screen: : No mental health history Psychosocial status: : Independent adult (65+) Abuse/Neglect: : None Resources / Services in place: : None DCP Re-evaluation QUESTION: ANSWER Would patient like to participate in any Care Coordination programs (if applicable): : Not applicable PATIENT: KIT AKHTAR ENCOUNTER: [id number] MEDICAL RECORD#: [id number] ADMISSION DATE: 11/08/2020 DISCHARGE DATE: ATTENDING MD: VALENCIA WALTON : AGE: 79 MARITAL STATUS: W DC PLAN ID: [id number] FACILITY: [facility] PRINTED ON: 11/11/20 16:08 CT All edits/amendments must be made on the electronic document DICTATION DATE: 11/11/201607 SOFTWARE ANALYST: NICKI 11/11/201607 RPT#: [id number] DC DATE: STATUS: ADM IN [facility] [address] [place] [address] END OF REPORT
--- NOTE | 2020-11-11 17:14 | NUR ---
AMBULATED TO CHAIR WITH STANDBY ASSIST. MEAL TRAY SET UP.
--- NOTE | 2020-11-11 18:35 | NUR ---
DISCHARGED INTRUCTIONS REVIEWED WITH PT [facility]. RIJ CVL DC'D WITH CATHETER TIP INTACT. PT INSTRUCTED TO LAY IN BED FOR 30MIN. WHEELED OUT TO PERSONAL VEHICLE. PERSONAL BELONGINGS SENT WITH PATIENT INCLUDING PHONE AND CYBER SYSTEMS OPERATIONS SPECIALIST.
--- NOTE | 2020-11-14 08:10 | MORECARE ---
CASE MANAGEMENT DISCHARGE SUMMARY PATIENT: KIT AKHTAR UNIT: [id number] ADM DATE: 11/08/20 AGE: 79 : 40 SEX: F ROOM/BED: D.08 AUTHOR: JONATHAN,DOC PHYSICIAN: REFERRING PHYSICIAN: VALENCIA CAO MD DATE OF SERVICE: 11/14/20 Case Management Discharge Planning Summary COMMENTS ENTERED DATE: 11/11/20 15:52 CT COMMENT TYPE: Discharge Planning REVIEWER: Annmarie Padilla CM informed by patient that her first choice is to go to [facility] and her second choice is to go home with [facility]. CM called and spoke with Shakira at [facility] about referral. Facility is not able to accept referral at this time. Told CM they are full and won't be able to take any referrals this week or next week. CM informed patient of this. Patient has decided she will go home with home health. Her granddaughter, Maggie, will pick her up from the hospital when she gets off work around 16:30. Granddaughter will stay with the patient this weekend. CM called [facility]. Spoke with Ye. Agency will admit on Saturday and PT will eval on Saturday. CM informed patient who verbalized understanding and satisfaction with DCP. CM faxed records to [facility] as requested. ENTERED DATE: 11/11/20 13:42 CT COMMENT TYPE: Discharge Planning REVIEWER: Annmarie Padilla 13:10 CM informed patient of denial for rehab. Offered list of SNF and Home Health. Patient states she would like to speak with her granddaughter about this decision. States she is at work right now, but she will text her. CM informed patient that home health is available to admit her tomorrow if she was interested in that services. CM awaiting patient's decision. ENTERED DATE: 11/11/20 13:41 CT COMMENT TYPE: Discharge Planning REVIEWER: Annmarie Padilla Late entry for 11:30 CM notified by Moraima Ham, [facility] rehab, that patient was too high functioning for rehab. ENTERED DATE: 11/11/20 13:31 CT COMMENT TYPE: Discharge Planning REVIEWER: Annmarie Padilla Late entry for 11:11 CM met with patient to discuss request for rehab. Patient states she still does not feel strong enough to go home alone. CM discussed availability of home health, rehab services, and SNF services. Patient signed BRENT for [facility] IR[facility]. Declined to choose potential SNF or Home Health at this time. Wants to wait until she hears determination for rehab. CM notified Moraima Ham at [facility] about referral. Awaiting determination. ENTERED DATE: 11/10/20 18:59 CT COMMENT TYPE: Discharge Planning REVIEWER: Annmarie Padilla CM met with patient to discuss discharge planning / needs. CM discussed availability of home health, rehab services, and medical equipment. Patient states she plans to discharge to home where she lives alone. States she does not feel safe to discharge today because she feels weak. States she was independent prior to hospitalization but she is not as strong as she was before. CM encouraged patient and discussed that she was able to ambulate 150` with therapy today and hopefully she will feel stronger tomorrow. Patient agreed. States she has a sister that lives in [place]. But she has her hands full taking care of her that has Alzheimer's. States she has a granddaughter that lives in [place] but she is not available all the time because she works. States her friend, Huey Maciel will transport her home upon discharge. Dr. Wall is her PCP and she uses [facility] on [address]. Denies any discharge planning needs at this time. CM will continue to follow and see if patient needs any post acute care upon hospital DC. DCP REVIEW SUMMARY ANTICIPATED D/C DATE: EXPECTED LOS : CASE STATUS: DCP Initiated INITIAL REVIEW: 11/10/2020 INITIAL REVIEWER: Annmarie Padilla FINAL DISCHARGE DISPOSITION: : FINAL REVIEWER: FINAL REVIEW DATE: DCP Focus Questions & Answers DCP Screen QUESTION: ANSWER High Risk Factors: : None Walking limitation: Patient stated self rated walking limitation present? : Yes Age: : 65 - 79 Prior living environment: : Lives Alone Disability ranking: : Grade 1: No significant disability DCP Evaluation QUESTION: ANSWER Patient and/or caregiver agree upon recommended discharge plan? : Yes Family / Caregiver's ability to cope with chronic illness: : a. Adequate (ability to meet patient's medical needs, ensures patient attends medical appts.) Patient's current cognitive status: : *Oriented to person, place, situation, time and present Patient's ability to cope with chronic illness : d. No chronic illness Functional screen assessment: : Basic needs can adequately be met by self Family / Caregiver's ability to cope with chronic illness: : a. Adequate (ability to meet patient's medical needs, ensures patient attends medical appts.) Physical Status: : Independent with ADL's Equipment needed for post hospitalization: : None Is there a likelihood that the patient will require additional services to return to the preadmission environment? : No Living Arrangements: : Home Alone with No Support Results of this evaluation have been discussed with: : Patient Patient with capacity for self-care or can be cared for in same environment as prior to hospitalization? : Yes Baseline cognitive status: : *Oriented to person, place, situation, time and present Physical environment modification needed / anticipated for discharge: : No Preadmission facility can/cannot provide post hospital level of care needs: : Can - at same level of care as preadmission Medication Management: : Patient states can afford medications Planned post hospital services available for patient? : N/A Pharmacy name(s): : [facility] on Planned post hospital services covered by insurance plan? : N/A Does Patient have transportation to get home and to follow-up medical appointments when discharged from the hospital? : Yes Comments: : Her friend, Huey Maciel will drive her home upon DC and to her appointments Would patient like to participate in any Care Coordination programs (if applicable): : Not applicable Does the patient have electricity at home? : Yes Does the patient have running water in their house? : Yes Equipment in use: : CPAP Equipment in use: : Cane - [employer] agency name and contact information: : [facility] on [address] Mental health screen: : No mental health history Psychosocial status: : Independent adult (65+) Abuse/Neglect: : None Resources / Services in place: : None DCP Re-evaluation QUESTION: ANSWER Would patient like to participate in any Care Coordination programs (if applicable): : Not applicable PATIENT: KIT AKHTAR ENCOUNTER: [id number] MEDICAL RECORD#: [id number] ADMISSION DATE: 11/08/2020 DISCHARGE DATE: 11/11/2020 ATTENDING MD: VALENICA WALTON : AGE: 79 MARITAL STATUS: W DC PLAN ID: [id number] FACILITY: [facility] PRINTED ON: 11/14/20 8:10 CT All edits/amendments must be made on the electronic document DICTATION DATE: 11/14/20809 SUGAR TRUCKER: NICKI 11/14/20809 RPT#: [id number] DC DATE:11/11/20 STATUS: DIS IN [facility] [address] [place] [address] END OF REPORT
--- NOTE | 2020-11-14 14:29 | MORECARE ---
CASE MANAGEMENT DISCHARGE SUMMARY PATIENT: KIT AKHTAR UNIT: [id number] ADM DATE: 11/08/20 AGE: 79 : 40 SEX: F ROOM/BED: D.08 AUTHOR: JONATHAN,DOC PHYSICIAN: REFERRING PHYSICIAN: VALENCIA CAO MD DATE OF SERVICE: 11/14/20 Case Management Discharge Planning Summary COMMENTS ENTERED DATE: 11/11/20 15:52 CT COMMENT TYPE: Discharge Planning REVIEWER: Annmarie Padilla CM informed by patient that her first choice is to go to [facility] SNF and her second choice is to go home with [facility]. CM called and spoke with Shakira at [facility] about referral. Facility is not able to accept referral at this time. Told CM they are full and won't be able to take any referrals this week or next week. CM informed patient of this. Patient has decided she will go home with home health. Her granddaughter, Maggie, will pick her up from the hospital when she gets off work around 16:30. Granddaughter will stay with the patient this weekend. CM called [facility]. Spoke with Ye. Agency will admit on Saturday and PT will eval on Saturday. CM informed patient who verbalized understanding and satisfaction with DCP. CM faxed records to [facility] as requested. ENTERED DATE: 11/11/20 13:42 CT COMMENT TYPE: Discharge Planning REVIEWER: Annmarie Padilla 13:10 CM informed patient of denial for rehab. Offered list of SNF and Home Health. Patient states she would like to speak with her granddaughter about this decision. States she is at work right now, but she will text her. CM informed patient that home health is available to admit her tomorrow if she was interested in that services. CM awaiting patient's decision. ENTERED DATE: 11/11/20 13:41 CT COMMENT TYPE: Discharge Planning REVIEWER: Annmarie Padilla Late entry for 11:30 CM notified by Moraima Ham, [facility] rehab, that patient was too high functioning for rehab. ENTERED DATE: 11/11/20 13:31 CT COMMENT TYPE: Discharge Planning REVIEWER: Annmarie Padilla Late entry for 11:11 CM met with patient to discuss request for rehab. Patient states she still does not feel strong enough to go home alone. CM discussed availability of home health, rehab services, and SNF services. Patient signed BRENT for [facility] IR[facility]. Declined to choose potential SNF or Home Health at this time. Wants to wait until she hears determination for rehab. CM notified Moraima Ham at [facility] about referral. Awaiting determination. ENTERED DATE: 11/10/20 18:59 CT COMMENT TYPE: Discharge Planning REVIEWER: Annmarie Padilla CM met with patient to discuss discharge planning / needs. CM discussed availability of home health, rehab services, and medical equipment. Patient states she plans to discharge to home where she lives alone. States she does not feel safe to discharge today because she feels weak. States she was independent prior to hospitalization but she is not as strong as she was before. CM encouraged patient and discussed that she was able to ambulate 150` with therapy today and hopefully she will feel stronger tomorrow. Patient agreed. States she has a sister that lives in [place]. But she has her hands full taking care of her that has Alzheimer's. States she has a granddaughter that lives in [place] but she is not available all the time because she works. States her friend, Huey Maciel will transport her home upon discharge. Dr. Wall is her PCP and she uses [facility] on [address]. Denies any discharge planning needs at this time. CM will continue to follow and see if patient needs any post acute care upon hospital DC. DCP REVIEW SUMMARY ANTICIPATED D/C DATE: EXPECTED LOS : CASE STATUS: DCP Initiated INITIAL REVIEW: 11/10/2020 INITIAL REVIEWER: Annmarie Padilla FINAL DISCHARGE DISPOSITION: : FINAL REVIEWER: FINAL REVIEW DATE: DCP Focus Questions & Answers DCP Screen QUESTION: ANSWER High Risk Factors: : None Walking limitation: Patient stated self rated walking limitation present? : Yes Age: : 65 - 79 Prior living environment: : Lives Alone Disability ranking: : Grade 1: No significant disability DCP Evaluation QUESTION: ANSWER Patient and/or caregiver agree upon recommended discharge plan? : Yes Family / Caregiver's ability to cope with chronic illness: : a. Adequate (ability to meet patient's medical needs, ensures patient attends medical appts.) Patient's current cognitive status: : *Oriented to person, place, situation, time and present Patient's ability to cope with chronic illness : d. No chronic illness Functional screen assessment: : Basic needs can adequately be met by self Family / Caregiver's ability to cope with chronic illness: : a. Adequate (ability to meet patient's medical needs, ensures patient attends medical appts.) Physical Status: : Independent with ADL's Equipment needed for post hospitalization: : None Is there a likelihood that the patient will require additional services to return to the preadmission environment? : No Living Arrangements: : Home Alone with No Support Results of this evaluation have been discussed with: : Patient Patient with capacity for self-care or can be cared for in same environment as prior to hospitalization? : Yes Baseline cognitive status: : *Oriented to person, place, situation, time and present Physical environment modification needed / anticipated for discharge: : No Preadmission facility can/cannot provide post hospital level of care needs: : Can - at same level of care as preadmission Medication Management: : Patient states can afford medications Planned post hospital services available for patient? : N/A Pharmacy name(s): : [facility] on Planned post hospital services covered by insurance plan? : N/A Does Patient have transportation to get home and to follow-up medical appointments when discharged from the hospital? : Yes Comments: : Her friend, Huey Maciel will drive her home upon DC and to her appointments Would patient like to participate in any Care Coordination programs (if applicable): : Not applicable Does the patient have electricity at home? : Yes Does the patient have running water in their house? : Yes Equipment in use: : CPAP Equipment in use: : Cane - [employer] agency name and contact information: : [facility] [address] Mental health screen: : No mental health history Psychosocial status: : Independent adult (65+) Abuse/Neglect: : None Resources / Services in place: : None DCP Re-evaluation QUESTION: ANSWER Would patient like to participate in any Care Coordination programs (if applicable): : Not applicable PATIENT: KIT AKHTAR ENCOUNTER: [id number] MEDICAL RECORD#: [id number] ADMISSION DATE: 11/08/2020 DISCHARGE DATE: 11/11/2020 ATTENDING MD: VALENCIA WALTON : AGE: 79 MARITAL STATUS: W DC PLAN ID: [id number] FACILITY: [facility] PRINTED ON: 11/14/20 14:29 CT All edits/amendments must be made on the electronic document DICTATION DATE: 11/14/201428 CHAMFERING MACHINE OPERATOR: NICKI 11/14/20 142 RPT#: [id number] DC DATE:11/11/20 STATUS: DIS IN [facility] [address] [place] [address] END OF REPORT
== END 2020-11-11 18:37 | disposition home health service (06) | DRG 269 ==
LOC: D.SDCHOLD 11-08 05:05 → D.CVICU 11-08 05:05 → D.SDCHOLD 11-08 07:30 → D.CVICU 11-08 09:45
PROVIDERS: Internal Medicine; ADMIT Thoracic Surgery (Cardiothoracic Vascular Surgery); ATTEND Thoracic Surgery (Cardiothoracic Vascular Surgery)
PROC: 04LA3DZ Occlusion of Left Renal Artery with Intraluminal Device, Percutaneous Approach (ICD-10-PCS; 2020-11-08)
PROC: 04703ZZ Dilation of Abdominal Aorta, Percutaneous Approach (ICD-10-PCS; 2020-11-08)
PROC: B41J1ZZ Fluoroscopy of Other Lower Arteries using Low Osmolar Contrast (ICD-10-PCS; 2020-11-08)
PROC: 04V03DZ Restriction of Abdominal Aorta with Intraluminal Device, Percutaneous Approach (ICD-10-PCS; principal; 2020-11-08 07:30)
DX: I71.4 Abdominal aortic aneurysm, without rupture (principal); N17.9 Acute kidney failure, unspecified; I10 Essential (primary) hypertension; Z95.0 Presence of cardiac pacemaker; Z79.01 Long term (current) use of anticoagulants; E11.40 Type 2 diabetes mellitus with diabetic neuropathy, unspecified; I48.91 Unspecified atrial fibrillation

== ENCOUNTER → 2020-11-14 10:06 | Outpatient (CLI) | payer MEDICARE ==
[2020-11-09 12:37] VITALS: BMI 33.8
[~2020-11-14 10:06] MED LIST changes: +MULTAQ400 MG PO
[2020-11-14 10:37] LABS: BASOPHILS 0.8 % (0-2); EOSINOPHILS 2.9 % (0-7); HEMATOCRIT 30.8 % (36.0-48.0); HEMOGLOBIN 10.2 g/dL (12-16); LYMPHOCYTES 12.6 % (15-50); MONOCYTES 12.4 % (2-11); NEUTROPHILS 71.3 % (40-80); RBC 3.28 10x6/uL (4.00-5.40); RDW 13.9 % (11.5-14.5); WBC 8.6 10x3/uL (4.8-10.8)
[2020-11-14 10:42] LABS: PLATELET COUNT 230 10x3/uL (130-400)
[2020-11-14 10:53] LABS: ANION GAP 16.5 mmol/L (8-16); BILIRUBIN - TOTAL 0.5 mg/dL (0.2-1.3); CALCIUM 9.7 mg/dL (8.5-10.1); CARBON DIOXIDE 22.1 mmol/L (21.0-32.0); CREATININE - SERUM 1.6 mg/dL (0.6-1.3); POTASSIUM - SERUM 3.6 mmol/L (3.5-5.1); PROTEIN - SERUM 7.3 g/dL (6.4-8.2)
== END | disposition home or self-care (01) ==
LOC: D.LAB 10:06
PROVIDERS: ATTEND Thoracic Surgery (Cardiothoracic Vascular Surgery)
DX: I71.4 Abdominal aortic aneurysm, without rupture (principal)

== ENCOUNTER → 2020-11-23 08:39 | Outpatient (CLI) | payer MEDICARE ==
[2020-11-09 12:37] VITALS: BMI 33.8
[2020-11-23 09:21] LABS: CREATININE - SERUM 1.8 mg/dL (0.6-1.3)
== END | disposition home or self-care (01) ==
LOC: D.LAB 08:39
PROVIDERS: ATTEND Thoracic Surgery (Cardiothoracic Vascular Surgery)
DX: I71.4 Abdominal aortic aneurysm, without rupture (principal)